=== PATIENT | female | born 1960 | race Caucasian/White ===

== ENCOUNTER → 2018-02-04 08:45 | Outpatient (CLI) | payer OTHER, SELFPAY ==
--- NOTE | 2018-02-04 | DI.MG.S_ITS ---
BILATERAL DIGITAL SCREENING MAMMOGRAM 3D/2D WITH CAD: 02/04/2018 CLINICAL: Routine screening. Family history of breast cancer. Comparison is made to exams dated: 01/31/2017 mammogram, 01/23/2016 mammogram, and 12/03/2014 mammogram - [facility]. The tissue of both breasts is heterogeneously dense. This may lower the sensitivity of mammography. Current study was also evaluated with a Computer Aided Detection (CAD) system. No significant masses, calcifications, or other findings are seen in either breast. There has been no significant interval change. IMPRESSION: NEGATIVE There is no mammographic evidence of malignancy. A 1 year screening mammogram is recommended. NOTE: For mammograms, a report in lay terms will be sent to the patient. Approximately 15% of breast malignancies will not be visualized mammographically. In the management of a palpable breast mass, a negative mammogram must not discourage biopsy of a clinically suspicious lesion. Electronically Signed By: Medina palma/shade:02/05/2018 12:36:24 letter sent: Normal Exam ACR BI-RADS Category 1: Negative [id number]
== END ==
PROVIDERS: PCP Family Medicine; Visit Provider Family Medicine
DX: Z12.31 Encounter for screening mammogram for malignant neoplasm of breast (principal); Z80.3 Family history of malignant neoplasm of breast
CPT/HCPCS: 77063; 77067

== ENCOUNTER → 2018-05-14 07:05 | Outpatient (CLI) | payer OTHER, SELFPAY ==
[2018-05-14 08:11] LABS: Add Manual Diff / Slide Review NO; Basophils Absolute Auto 100 /uL (0-100); Basophils Percent Auto 1.4 % (0-2); Eosinophils Absolute Auto 200 /uL (0-450); Eosinophils Percent Auto 2.8 % (2-4); Hematocrit 42.4 % (36-46); Hemoglobin 14.2 g/dL (12.0-16.0); Lymphocytes Absolute Auto 1600 /uL (1100-4500); Lymphocytes Percent Auto 26.4 % (25-40); Mean Corpuscular HGB Conc 33.4 % (30-36); Mean Corpuscular Hemoglobin 31.1 PG (26-34); Mean Corpuscular Volume 93.1 fL (80-100); Monocytes Absolute Auto 600 /uL (0-900); Monocytes Percent Auto 10.3 % (3-14); Neutrophils Absolute Auto 3600 /uL (1500-7000); Neutrophils Percent Auto 59.1 % (50-75); Platelet Count 360 X10^3/uL (150-400); Red Blood Cell Count 4.56 X10^6/uL (4.0-5.2); Red Cell Distribution Width 13.4 % (11.6-14.8); White Blood Cell Count 6.1 X10^3/uL (4.5-11.0)
[2018-05-14 08:18] LABS: Carbon Dioxide 29 mmol/L (22-32); Chloride 101 mmol/L (98-107); HEMOLYSIS < 15 (0-50); Potassium 4.1 mmol/L (3.4-5.1); Sodium 139 mmol/L (137-145)
== END ==
PROVIDERS: PCP Family Medicine; Visit Provider Orthopaedic Surgery
DX: M16.11 Unilateral primary osteoarthritis, right hip (principal); Z01.818 Encounter for other preprocedural examination; Z01.812 Encounter for preprocedural laboratory examination
CPT/HCPCS: 36415; 80051; 85025; 93005

== ENCOUNTER 2018-05-26 07:58 | Inpatient (IN) | payer OTHER, SELFPAY ==
[2018-05-23 08:54] VITALS: BMI 28.3
[2018-05-26] VITALS (18 sets, daily range): BP systolic 101–159; BP diastolic 60–104; PULSE 69–98; RESP 15–18; TEMP 35.9–37; O2SAT 94–100; BMI 28.2
--- NOTE | 2018-05-26 06:00 | DI.RAD.S_ITS ---
PROCEDURE: XR PELVIS 1-2V INDICATIONS: post op films TECHNIQUE: Single frontal view of the pelvis acquired. COMPARISON: None. FINDINGS: Bones: No fractures or dislocations. No suspicious bony lesions. Normal alignment after right total hip arthroplasty. Soft tissues: Visualized bowel gas pattern is normal. No suspicious soft tissue calcifications. IMPRESSION: Right total hip arthroplasty procedure, normal alignment. Dictated by: Von Hui M.D. on 05/26/2018 at 13:02 Approved by: Von Hui M.D. on 05/26/2018 at 13:02
[2018-05-26] MEDS: ACETAMINOPHEN 325 MG TABLET 975 MG PO (08:51)
[2018-05-26] MEDS: CELECOXIB 200 MG CAPSULE PO (08:51)
[2018-05-26] MEDS: LACTATED RINGERS 1,000 ML 42 ML IV ×2 (09:02→10:29)
--- NOTE | 2018-05-26 09:15 | PM.PREOP ---
Pre-operative Note Interval Note History & Physical reviewed/Exam performed by Physician: Yes Changes to H&P: No
[2018-05-26] MEDS: CEFAZOLIN 1 GM VIAL IV (09:39)
--- NOTE | 2018-05-26 10:13 | SUR.OPER ---
Lateral on padded OR bed. Gel axillary roll. Arms secured on padded armboard with pillow supporting top arm. Padded hip positioner braces x4 - anterior and posterior chest and pelvis. Additional gel pad used anterior pelvis. Gel pad under bottom leg from knee to foot and secured with tape over sheet.
[2018-05-26] MEDS: BUPIVACAINE 0.25% W/ EPI VIAL 50 ML INJ (10:17)
[2018-05-26] MEDS: TRANEXAMIC ACID 1,000 MG VIAL 1000 MG IV ×2 (10:18→10:50)
--- NOTE | 2018-05-26 11:17 | PM.OP.1 ---
Operative Date/Time/Diagnoses Date of procedure: 05/26/18 Time of procedure: 11:18 Pre-op diagnosis: Right hip degenerative joint disease Post-op diagnosis: same Procedure & Clinicians Procedure: Right total hip arthroplasty (CPT code 67106 with social services assistant) Same procedure as scheduled: Yes Indications: Patient is an 57-year-old female with severe right hip DJD. The patient has pain with activities and at rest, limited ambulation and activity tolerance, difficulties with ADLs, and failure of conservative treatment. We have discussed the nature of condition, treatment options, risks and benefits, and patient elects to proceed with total hip arthroplasty and gives informed consent. Surgeon: Palmer Lundberg Director Fixed Income: Jaison Alba Anesthesia Type: General and Spinal Operative Notes Closure Type: primary Specimen(s): none sent Prosthetic devices, grafts, tissues, transplants, or devices: Acetabulum: Gamboa and Nephew R3 acetabular component size 46 mm Femoral component: Gamboa and Nephew Anthology stem size 4 with standard offset Femoral head: 28 mm + 4 Oxinium Estimated Blood Loss (mL): 150 Blood products transfused: none Procedure in detail: After satisfaction induction of anesthetic, and administration of IV antibiotics, the patient was positioned in the lateral decubitus position with all bony prominences well padded and pelvic position secured using a hip mail clerk positioning device. Right hip and lower extremity prepped and draped in the usual sterile fashion, 1st dose of intravenous tranexamic acid was administered, then a longitudinal incision was created centered over the greater trochanter and carried sharply through the skin and subcutaneous tissues down to the fascia alex which was divided longitudinally and retracted with a Charnley retractor. External rotators visualize, cut, tagged, and retracted posteriorly, then the capsule was cut in a T-type fashion with the corners tagged and retracted. Hip was dislocated and femoral neck cut made according to preoperative templating. Acetabular retractors then placed, and the acetabular labrum and osteophytes were excised. The acetabulum was then sequentially reamed to 45 mm with an excellent circumferential ream and fit with the trial. The trial component was removed and a permanent size 46 mm Gamboa and Nephew R3 acetabular component was selected, positioned, and impacted with satisfactory position and fixation achieved. Permanent liner was then inserted with the elevated lip directed posteriorly. Soft tissue then removed off the lateral femoral neck in the lateral neck was entered using a box osteotome. T-handled reamers placed down the canal followed by sequential broaching to for with the final broach left in place for trial reduction which demonstrated excellent leg length, range of motion, and stability characteristics with a 28 mm + 4 trial ball. The trial and broach were removed, and a permanent size 4 standard offset Gamboa and Nephew Anthology stem was selected and inserted with excellent position and fixation achieved. Another trial reduction yielded the above characteristics so the trial ball was exchanged for a permanent +4 28 mm Oxinium ball. The hip was irrigated and reduced and excellent leg length range of motion and stability characteristics were achieved and maintained. Periarticular tissues were infiltrated with Marcaine. The hip was copiously irrigated, and the capsule repaired with #2 Ethibond, and the piriformis was repaired back to the greater trochanter with the same. Fascia alex closed with interrupted #1 Ethibond sutures, and the subcutaneous tissues were closed in 2 layers of 0 Vicryl and 2 0 Vicryl. Skin was closed with tha and sterile dressings applied. Second dose of tranexamic acid was administered intravenously, and the anesthetic was terminated. Complications: none Condition: stable Disposition: PACU Plan for aftercare: Patient will be admitted to the acute care serna, and anticipate discharge on postop day 1-2 with follow-up in office in 10-14 days. Outpatient physical therapy will be arranged and patient will continue to observe posterior hip precautions. Patient will continue use of postoperative Lovenox for 10 days postop.
--- NOTE | 2018-05-26 11:21 | P.OP_ITS ---
Operative Date/Time/Diagnoses Date of procedure: 05/26/18 Time of procedure: 11:18 Pre-op diagnosis: Right hip degenerative joint disease Post-op diagnosis: same Procedure & Clinicians Procedure: Right total hip arthroplasty (CPT code 78695 with activities assistant) Same procedure as scheduled: Yes Indications: Patient is an 57-year-old female with severe right hip DJD. The patient has pain with activities and at rest, limited ambulation and activity tolerance, difficulties with ADLs, and failure of conservative treatment. We have discussed the nature of condition, treatment options, risks and benefits, and patient elects to proceed with total hip arthroplasty and gives informed consent. Surgeon: Palmer Lundberg Director Of Email Marketing: Jaison Alba Anesthesia Type: General and Spinal Operative Notes Closure Type: primary Specimen(s): none sent Prosthetic devices, grafts, tissues, transplants, or devices: Acetabulum: Gamboa and Nephew R3 acetabular component size 46 mm Femoral component: Gamboa and Nephew Anthology stem size 4 with standard offset Femoral head: 28 mm + 4 Oxinium Estimated Blood Loss (mL): 150 Blood products transfused: none Procedure in detail: After satisfaction induction of anesthetic, and administration of IV antibiotics, the patient was positioned in the lateral decubitus position with all bony prominences well padded and pelvic position secured using a hip doll surgeon positioning device. Right hip and lower extremity prepped and draped in the usual sterile fashion, 1st dose of intravenous tranexamic acid was administered, then a longitudinal incision was created centered over the greater trochanter and carried sharply through the skin and subcutaneous tissues down to the fascia alex which was divided longitudinally and retracted with a Charnley retractor. External rotators visualize, cut, tagged, and retracted posteriorly, then the capsule was cut in a T-type fashion with the corners tagged and retracted. Hip was dislocated and femoral neck cut made according to preoperative templating. Acetabular retractors then placed, a nd the acetabular labrum and osteophytes were excised. The acetabulum was then sequentially reamed to 45 mm with an excellent circumferential ream and fit with the trial. The trial component was removed and a permanent size 46 mm Gamboa and Nephew R3 acetabular component was selected, positioned, and impacted with satisfactory position and fixation achieved. Permanent liner was then inserted with the elevated lip directed posteriorly. Soft tissue then removed off the lateral femoral neck in the lateral neck was entered using a box osteotome. T- handled reamers placed down the canal followed by sequential broaching to for with the final broach left in place for trial reduction which demonstrated excellent leg length, range of motion, and stability characteristics with a 28 mm + 4 trial ball. The trial and broach were removed, and a permanent size 4 standard offset Gamboa and Nephew Anthology stem was selected and inserted with excellent position and fixation achieved. Another trial reduction yielded the above characteristics so the trial ball was exchanged for a permanent +4 28 mm Oxinium ball. The hip was irrigated and reduced and excellent leg length range of motion and stability characteristics were achieved and maintained. Periarticular tissues were infiltrated with Marcaine. The hip was copiously irrigated, and the capsule repaired with #2 Ethibond, and the piriformis was repaired back to the greater trochanter with the same. Fascia alex closed with interrupted #1 Ethibond sutures, and the subcutaneous tissues were closed in 2 layers of 0 Vicryl and 2 0 Vicryl. Skin was closed with tha and sterile dressings applied. Second dose of tranexamic acid was administered intravenously, and the anesthetic was terminated. Complications: none Condition: stable Disposition: PACU Plan for aftercare: Patient will be admitted to the acute care serna, and anticipate discharge on postop day 1-2 with follow-up in office in 10-14 days. Outpatient physical therapy will be arranged and patient will continue to observe posterior hip precautions. Patient will continue use of postoperative Lovenox for 10 days postop.
[2018-05-26] MEDS: ONDANSETRON 4 MG/2 ML INJ IV (11:38)
[2018-05-26] MEDS: LACTATED RINGERS 1,000 ML 125 ML IV ×3 (12:21→20:32)
[2018-05-26] MEDS: HYDROCODONE/ACET 5/325 TABLET 1 TAB PO ×3 (13:49→23:22)
--- NOTE | 2018-05-26 14:08 | PC.NURSE ---
Day Shift Pt arrived to floor via bed from PACU, Ana ADLER assisted with admission, Pt is A&O able to make needs known. Right hip dressing is CDI, continues to have numbness to bilateral LE from upper thigh down, unable to wiggle toes, feet are warm to touch and +PP with brisk cap refill. Lung sounds are clear 99% RA, Denies any nausea. Oriented to room and call light. IV fluids infusing per order. Call light within reach and bed alarm on.
[2018-05-26] MEDS: hydrOXYzine pamoate 25 MG CAPSULE PO (16:32)
--- NOTE | 2018-05-26 17:14 | PC.NURSE ---
Addendum entered by iZta Lake R.N. 05/26/18 21:51: Pt stable post op course. SBA to BR w/walker w/o incidence. IVF continues as per orders. Dsg to surgical hip CDI. Med @ 1800 for discomfort w/fair relief. Call light w/in reach, bed alarm on for pt safety. Continue w/plan of care. Original Note: Pt awake visiting w/ family. Able to move lower extremities at this time. IVF infusing via pump as per orders. Dsg to surgical hip CDI. Med at 1630 w/vistaril for muscle spams w/good relief. Call lgith w/in reach.
[2018-05-26] MEDS: CEFAZOLIN 2 GM/100 ML FROZ.PIGGY IV (17:59)
--- NOTE | 2018-05-26 18:28 | PT.IPTN ---
Current Diagnoses Unilateral primary osteoarthritis, right hip (05/26/18) Surgery Performed Operation Date: 05/26/18 10:00 Actual Procedures p Total Hip Arthroplasty(Right) - Palmer Lundberg MD Physical Therapy Treatment Note M3 PT-IP Subjective Start: 05/26/18 15:11 Freq: NEEDED Status: Active Protocol: Document 05/26/18 17:20 HH (Rec: 05/26/18 18:28 HH [id number]) Subjective Physical Therapy Visit Type Type Administrative Note Visit Start Time 17:20 Visit Stop Time 17:30 Total Visit Minutes 10 Notes Assisted nursing staff and pt to use bathroom. Did not perform full PT evaluation. Pt was able to supine to sit to R side SBA, transfer with SBA and amb from EOB to bathroom SBA. Cues needed to use stagger stance for sit<>stand activities. Pt was able to recall postop precautions.
[2018-05-27] MEDS: CEFAZOLIN 2 GM/100 ML FROZ.PIGGY IV (01:52)
[2018-05-27 03:35] VITALS: BP 131/82; PULSE 87; RESP 20; TEMP 37.1; O2SAT 97
[2018-05-27] MEDS: HYDROCODONE/ACET 5/325 TABLET 1 TAB PO ×2 (03:36→07:53)
[2018-05-27 05:56] LABS: Estimated Glomerular Filt Rate > 60.0 mL/min (>60)
[2018-05-27 05:58] LABS: Hematocrit 36.2 % (36-46); Hemoglobin 12.3 g/dL (12.0-16.0)
[2018-05-27 06:13] LABS: Platelet Count 275 X10^3/uL (150-400)
--- NOTE | 2018-05-27 07:21 | PM.DS.1 ---
History of Present Illness Date Patient Seen: 05/27/18 Chief complaint: 02250 Right Total Hip Arthroplasty Narrative: Patient seen by Dr. Lundberg bedside status post right total hip arthroplasty postop day 1. Patient is doing well, she denies any nausea vomiting and pain is well controlled. She would like to go home today. Discharge Providers Date of admission: 05/26/18 07:58 Discharge Date: 05/27/18 Primary care physician: Noah Pepe MD Consults: 05/26/18 12:07 Consult to Discharge Planning Routine Comment: Consult to Physical Therapy Evaluate & Treat Comment: Physician Instructions: post op CUCA protocol Consult to Respiratory Therapy Evaluate & Treat Comment: Physician Instructions: Evaluate and treat Discharge provider: Angeles Holt PA-C Summary Discharge Diagnosis: right hip osteoarthritis Hospital Course: Patient was admitted to the hospital s/p R. total hip arthroplasty by Dr. Lundberg on 05/26/18. Patient tolerated the procedure well with no major complications. They were transferred to the acute care floor where they were placed on the standard joint replacement pathway and protocol. They were seen by physical therapy who recommended that they be discharged home. They were stable and ready for discharge on 05/27/18. Status at Discharge Cognitive/behavioral status at discharge: Alert oriented x3 Overall status at discharge: patient is progressing back to baseline Time Spent with Patient Less than 30 minutes Exam Vital Signs (past 8 hours): - 05/26/18 23:30 05/27/18 03:35 Temperature 98.6 F 98.8 F Pulse Rate 86 87 Respiratory Rate 18 20 Blood Pressure 133/76 131/82 Pulse Oximetry 97 97 Oxygen Delivery Method Room Air Narrative Exam Narrative: Patient examined by Dr. Lunbderg. Dressing on operative hip clean, dry, and intact with no signs of drainage. Neurovascularly intact bilateral lower extremities with soft compressible calaves. Alert and oriented. Objective Labs Result Diagrams: 05/27/18 05:02 05/27/18 05:02 Labs: Laboratory Results - last 24 hr 05/27/18 05/27/18 05/27/18 05:02 05:02 05:02 Hgb 12.3 Hct 36.2 Plt Count 275 Creatinine 0.50 L Estimated GFR > 60.0 Discharge Plan Discharge Plan Patient Disposition: Home Discharge comment: d/c after PT Discharge Med Rec/Prescriptions Prescriptions: New hydrocodone-acetaminophen 5-325 mg Tablet 1 tab PO Q4HR PRN (Reason: Pain, Moderate (4-6)) Qty: 0 RF: 0 hydroxyzine pamoate 25 mg Capsule 25 mg PO Q6HR PRN (Reason: Spasms) Qty: 0 RF: 0 enoxaparin [Lovenox] 40 mg/0.4 mL Syringe 40 mg subcut DAILY 8 Days Qty: 3.2 RF: 0 Continued ibuprofen [Advil] 100 MG tablet 600 mg PO TID-QID Qty: 0 RF: 0 lisinopril 10 MG tablet 20 mg PO QDAY Qty: 0 RF: 0 vitamin B complex [B Complex-Vitamin B12] 1 EACH tablet 2 tab PO QDAY Qty: 0 RF: 0 cholecalciferol (vitamin D3) [Vitamin D3] 400 UNIT capsule 8,000 unit PO DAILY Qty: 0 RF: 0 acetaminophen [Tylenol Extra Strength] 500 mg Tablet 1,000 mg PO Q6H PRN (Reason: Pain (Scale Score 1-3)) RF: 0 Follow up/Referrals: Palmer Lundberg MD [Physician] - (Follow up at the office in 5-7 days at your previously scheduled appointment.) Provider Discharge Instructions Diet: Diet as Tolerated Activity: weight-bearing as tolerated, follow hip precautions, use walker until cleared by PT Cold/Heat Therapy: Apply ice to affected area for 20 minutes at a time at least hourly while awake. Skin/Wound/Dressing Care Report to your healthcare provider any signs of infection, such as:: chills, fever, night sweats, increased pain, unusual drainage and unusual redness Dressing: Keep dressing clean, dry, and intact. Visit Report/Discharge Packet Instructions: DI for Hip Replacement Stand Alone Forms: Surgery Discharge Discharge Data Primary Care Provider: Noah Pepe Attending Provider: Palmer Lundberg Admit Date/Time: 05/26/18 07:58 Discharges patient from system. Discharge Date/Time: 05/27/18 10:20 Quality VTE Deep Vein Thrombosis/Pulmonary Embolism Present on Admission: No
[2018-05-27] MEDS: ENOXAPARIN 40 MG/0.4 ML SYRINGE SUBCUT (07:56)
[2018-05-27 08:00] VITALS: BP 118/83; PULSE 99; RESP 16; TEMP 36.7; O2SAT 98
--- NOTE | 2018-05-27 11:13 | CM.DANOTE ---
DCP/Assessment: Reviewed chart. Patient is a 57yr old female admitted to [facility] for right CUCA performed on 05-26-[address] Lundberg. PCP is Dr. Peep. Primary payor is 1[employer]. Met with patient explained CM/SW role. Patient reports that she plans to discharge home today. Patient reports that she has supportive spouse and plans to do outpatient therapy. Patient has FWW for home use and spouse intends to borrow shower bench/chair for short term use. Patient I prior to admit. No additional d/c planning needs identified. P: Home today. WERNER Mcadams Discharge Planning/Care Management CM Discharge Assessment Start: 05/27/18 11:09 Freq: Status: Discharge Protocol: Document 05/27/18 11:10 KJS (Rec: 05/27/18 11:13 KJS [id number]) Discharge Planning Assessment Assigned Solvent Process Extractor Operator WERNER Mcadams Contact Information Horace (spouse) no number listed . Advance Directives? No: Pt will download information on own Advance Directives on File No History Provided By Patient Medical Record Has Patient been admitted in last 30 No days? Prior Living Arrangements House Household Members spouse children Type of transporation used prior to Drives own vehicle admit Independent with ADL's Yes Is patient alert and oriented? Yes Caregiver for Another No DME Already Rented / Owned FWW / Walker Comment Patient's spouse going to borrow shower bench/chair for home use. Patient/Family Preference OP PT Therapy Barriers to Discharge No Discharge Plan Home Transportation Arrangement Family to provide transport Referrals Initiated None needed Whiteboard Updated in Patient Room with Yes name and ext. # of Solvent Process Extractor Operator Review Status In Process Please Provide Date Initial DC 05/27/18 Assessment Was Performed Next Review Type Continued Stay Review Pre-Anesthesia Assessment Start: 05/23/18 08:54 Freq: Status: Complete Protocol: Document 05/23/18 08:54 CAB (Rec: 05/23/18 09:27 CAB [id number]) Pre-Anesthesia Assessment Patient Information Reviewed Via Phone Assessment Assessment Completed With Patient Diagnostic Results CBC EKG Electrolytes Primary Care Provider Noah Pepe Seen Specialist in Last 12 Months Yes Specialist Seen Orthopedist Primary Language Macedonian Enamel Cracker Required No Height 148.59 cm Weight 62.596 kg Body Mass Index (BMI) 28.3 Hearing Ability Normal Visual Assist Contacts Glasses Dentition Type Teeth, Natural Present Barriers to Learning None Other Aids No Hx Anesthesia Reactions No Hx Family Anesthesia Reaction No Hx Malignant Hyperthermia No Hx Blood Transfusions No Anesthesia Review Requested Yes: PAC Courtesy re: abnormal pre-op ECG Draughtsman No alcohol intake current alcohol intake frequency 0-2 drinks per day Smoking Status Former smoker Tobacco type cigarettes how long ago did patient quit smoking Quit 1985 Substance Use Type does not use Pain Present Pain Reported Musculoskeletal Symptoms Abnormal Gait Difficulty Walking Joint Pain Muscle Weakness History of Falling (Recent or History of No ) Patient is completely paralyzed or No completely immobile Mental Status Oriented to own ability Is patient on oxygen? No Does patient have NAIR/SOB No Hx Sleep Apnea No Currently Taking a Beta Karel No Can You Climb a Flight of Stairs Without Yes SOB Hx Chest Pain No Hx SOB No Hx Syncope or Dizziness No Anti-Coagulant Therapy No Has a Restaurant Hospitality Manager No Cardiac Testing No Hx Pacemaker/ICD No Pacemaker Rep Required? No Cardiac Clearance Received Not Applicable Diet Type At Home Regular Ketogenic dysphagia No Bladder Pattern Urgency Urinary Catheter Present No Hx Urinary Self Catheterization No Diabetes No Patient No Lactating No Hx Drug Resistant Organism No Presence of External or Internal Medical No Devices Have you traveled outside the [facility] States in the last 30 days? Marital Status Lives With spouse children Prior Living Arrangements House Number of Floors (Floors) Two Floors Number of Stairs To Enter/Railing? None Support System Child/Children Spouse Does the Patient Have Assistance After Yes Surgery Patient Discharge Plan Description Return Home Comment Pt advised 26 hour length of stay per surgeon's office Feels Safe in Current Environment Yes Been Physically Hurt or Threatened By a No Person in Current Environment Do you have thoughts of harming yourself None or others? Are you currently considering suicide? No Do you have a plan to hurt yourself or No Plan others? Do You Have Any Spiritual Beliefs That No May Affect Your HC Choices? Do You Have Any Cultural Practices That No May Affect Your HC Choices? Spiritual Referral None Comment Sikhism Who Can We Speak to About Patient's Care Family, friends Identifying Code for Release of Patient Declines to issue Information Health Care Proxy/Next of Kin Horace () Health Care Proxy Emergency Contact Name Horace (), Sherri ( daughter) Emergency Contact Phone Number Horace () [phone] or Sherri (daughter) [phone] Advance Directives? No: Pt will download information on own Advance Directives on File No Requested Patient Bring Advanced Yes Directives DOS Power of Dogman/Woman No PAC Instructions Do not shave/clip surgical site Durable medical equipment Medications to take/avoid Nasal antibiotic No ETOH/petroleum product on skin DOS NPO Post-op transportation Pre-surgical wash Sturdy shoes/comfortable clothes Do not bring valuables and remove jewelry
--- NOTE | 2018-05-27 11:18 | PT.IIE ---
Current Diagnoses Unilateral primary osteoarthritis, right hip (05/26/18) Surgery Performed Operation Date: 05/26/18 10:00 Actual Procedures p Total Hip Arthroplasty(Right) - Palmer Lundberg MD Surgical History (Last Updated 05/23/18 @ 09:15 by Marlin Mireles RN) Hx of tubal ligation (Acute) Medical History (Last Updated 05/23/18 @ 09:15 by Marlin Mireles RN) Diverticulosis (Acute) Former smoker (Acute) HTN (hypertension) (Acute) Kidney stones (Acute) Migraines (Acute) Osteoarthritis (Acute) Physical Therapy Inpatient Evaluation/Re-Eval M1 PT/OT-IP Prior Functional Status Start: 05/26/18 15:11 Freq: NEEDED Status: Discharge Protocol: Document 05/27/18 09:28 RS (Rec: 05/27/18 11:18 RS [id number]) Medical Review Prior Functional Status Medical History Reviewed Yes Diet/Fluid Consistency Regular Communication no known deficits Mobility and Gait ind Activities of Daily Living and IADL's ind Prior Functional Level (Other details) no falls Social History Household Members spouse children Living Arrangements House Number of Floors (Floors) One Floor Number of Stairs To Enter/Railing? 2STE w/ R ascending rail Home Environment Standard Height Toilet Home Equipment Front Wheel Walker Straight Cane Raised Toilet Seat w/Armrests M2 PT-IP Current Condition Start: 05/26/18 15:11 Freq: NEEDED Status: Discharge Protocol: Document 05/27/18 09:28 RS (Rec: 05/27/18 11:18 RS [id number]) Physical Therapy Current Condition Current Condition Evaluation Date 05/27/18 Treatment Diagnosis R posterior CUCA Onset Date 05/26/18 Precautions Posterior Hip Precautions No Hip Flexion > 90 degrees No Hip Internal Rotation No Hip Adduction Weight Bearing Status Weight Bearing Status Weight Bear as Tolerated M3 PT-IP Subjective Start: 05/26/18 15:11 Freq: NEEDED Status: Discharge Protocol: Document 05/27/18 09:28 RS (Rec: 05/27/18 11:18 RS [id number]) Subjective Physical Therapy Visit Type Type Initial Evaluation Visit Start Time 08:30 Visit Stop Time 09:28 Total Visit Minutes 58 Physical Therapy Visit Comments Patient Comments Pt reports doing well, is looking forward to going home today. Therapy Pain Assessment Pain When Pain Assessed At Rest Pain Present Pain Present Denied Pain M4 PT-IP Mobility and Gait Start: 05/26/18 15:11 Freq: NEEDED Status: Discharge Protocol: Document 05/27/18 09:28 RS (Rec: 05/27/18 11:18 RS [id number]) PT-Transfer Assessment Sit to and From Stand Sit to and from Stand Standby Assistance Equipment Transfer Assistive Device Front Wheeled Walker Transfers Transfer Destination Chair Transfer Technique walked Transfer Ability Level of Assist Standby Assistance Comments Mobility Comments Pt is SBA for all transfers using a FWW, able to utilize staggered stance for sit<> stands without prompting, doesn't break hip precautions. Gait Assessment Gait Gait Assistance Required: Standby Assistance Distance (Feet) 100 Assistive Devices Assistive Device Front Wheeled Walker Gait Deviations General Gait Pattern Antalgic Comments Gait Comments Pt is slightly antalgic but able to tolerate a relatively symmetrical gait pattern, steady, no LOB. Stair Climbing Assessment Evaluation Level of Assist On Stairs Contact Guard Assistance Devices Stair Climbing Assistive Devices Right Railing Technique/Endurance Stair Climbing Direction Ascend and Descend Stair Climbing Technique Step to Step Number of Steps Climbed 3 Query Text: Stair Climbing Set # Repetitions (reps) 1 PT-Balance Assessment Sitting Balance and Reactions Static Sitting Balance Ability Normal Dynamic Sitting Balance Ability Good Standing Balance and Reactions Static Standing Balance Ability Good Dynamic Standing Balance Ability Good Device Used FWW M5 PT-IP Objective Assessments Start: 05/26/18 15:11 Freq: NEEDED Status: Discharge Protocol: Document 05/27/18 09:28 RS (Rec: 05/27/18 11:18 RS [id number]) Orientation Orientation/Cognition Level of Alertness Alert Orientation Name Age Birthday Month Date Year Day of Week Place Situation Language Function Ability No Deficits Noted Safety Awareness Understands Safety Issues Memory Description No Deficits Noted Gross Range of Motion Upper Extremity ROM Assessment Within Functional Limits Lower Extremity ROM Assessment Within Functional Limits Impairments within precautions Strength Upper Extremity Strength Assessment Within Functional Limits Lower Extremity Strength Assessment Right Impaired M6 PT-IP Treatment Start: 05/26/18 15:11 Freq: NEEDED Status: Discharge Protocol: Document 05/27/18 09:28 RS (Rec: 05/27/18 11:18 RS [id number]) Physical Therapy Treatment Exercises Exercises Ankle Pumps Gluteal Sets Quad Sets Heel Slides Supine Hip Abduction Education Education Provided Precautions Weight Bearing Status Post-Op Packet Safety M7 PT-IP Assessment and Plan Start: 05/26/18 15:11 Freq: NEEDED Status: Discharge Protocol: Document 05/27/18 09:28 RS (Rec: 05/27/18 11:18 RS [id number]) PT Summary Assessment and Plan Potential Rehabilitation Potential Excellent Status of Condition at Evaluation Stable Summary Impairments Pain ROM Strength Balance Progress Towards Goals Safe For Discharge Goals Met Assessment Summary Pt is POD#1 R posterior CUCA. Pt does present with pain and weakness resulting in the need for SBA with FWW for OOB mobility, but this is expected after such a surgery. Pt is doing quite well overall and is safe to discharge directly home once medically ready. Pt' s spouse will provide 15/10 assist, and pt will be starting OPPT on 06/02. Pt has no other acute PT goals/ needs, therefore, acute PT will sign off. Goals Bed Mobility Goal Standby Assistance Transfer Goal Standby Assistance Front Wheeled Walker Gait Goal Standby Assistance Front Wheel Walker Frequency of Treatment Frequency Of Treatment Discharge Recommendations To Nursing Amount of Assist Needed Standby Assistance Discharge Recommendations PT Discharge Recommendations Home with Assistance Outpatient PT
== END 2018-05-27 10:20 | disposition home or self-care (01) | DRG 470 ==
PROVIDERS: Admitting Provider Orthopaedic Surgery; PCP Family Medicine; Visit Provider Orthopaedic Surgery
PROC: 0SR90JZ Replacement of Right Hip Joint with Synthetic Substitute, Open Approach (ICD-10-PCS; CPT 27130; principal; 2018-05-26 10:00)
DX: M16.11 Unilateral primary osteoarthritis, right hip (principal); I10 Essential (primary) hypertension; Z87.891 Personal history of nicotine dependence
CPT/HCPCS: 36415; 72170; 82565; 85014; 85018; 85049; 97110; 97116; 97161; 97530; C1776; J0690; J1650; J2250; J2405; J2704; J3010

== ENCOUNTER → 2018-12-05 07:10 | Outpatient (CLI) | payer OTHER, SELFPAY ==
[2018-05-26 12:13] VITALS: BMI 28.2
[2018-12-05 07:44] LABS: Add Manual Diff / Slide Review NO; Basophils Absolute Auto 100 /uL (0-100); Basophils Percent Auto 1.2 % (0-2); Eosinophils Absolute Auto 100 /uL (0-450); Hematocrit 40.9 % (36-46); Hemoglobin 13.9 g/dL (12.0-16.0); Lymphocytes Absolute Auto 1800 /uL (1100-4500); Lymphocytes Percent Auto 35.5 % (25-40); Mean Corpuscular Volume 96.9 fL (80-100); Monocytes Absolute Auto 600 /uL (0-900); Monocytes Percent Auto 11.5 % (3-14); Neutrophils Absolute Auto 2600 /uL (1500-7000); Neutrophils Percent Auto 49.8 % (50-75); Platelet Count 302 X10^3/uL (150-400); Red Blood Cell Count 4.23 X10^6/uL (4.0-5.2); Red Cell Distribution Width 13.8 % (11.6-14.8); White Blood Cell Count 5.1 X10^3/uL (4.5-11.0)
[2018-12-05 08:02] LABS: Carbon Dioxide 29 mmol/L (22-32); Chloride 101 mmol/L (98-107); HEMOLYSIS 16 (0-50); Potassium 4.1 mmol/L (3.4-5.1); Sodium 139 mmol/L (137-145)
== END ==
PROVIDERS: Visit Provider Orthopaedic Surgery
DX: M17.11 Unilateral primary osteoarthritis, right knee (principal); Z01.818 Encounter for other preprocedural examination; Z01.812 Encounter for preprocedural laboratory examination
CPT/HCPCS: 36415; 80051; 85025; 93005; 93010

== ENCOUNTER 2018-12-24 06:55 | Day surgery (SDC) | payer BC, SELFPAY ==
[2018-05-26 12:13] VITALS: BMI 28.2
[2018-12-12 09:55] VITALS: BMI 28.3
[2018-12-24] VITALS (14 sets, daily range): BP systolic 98–148; BP diastolic 6–93; PULSE 77–90; RESP 14–25; TEMP 36.1–37.3; O2SAT 95–98; BMI 28.8
--- NOTE | 2018-12-24 06:00 | DI.RAD.S_ITS ---
PROCEDURE: XR KNEE RT 1TO2V INDICATIONS: post-op RT KNEE TECHNIQUE: 2 view(s) of the knee acquired. COMPARISON: [facility] [place], ALISHA, XR KNEE ARTHRITIC SERIES RT, 04/01/2018, 7:35. FINDINGS: Bones: Patient is status post knee joint arthroplasty. Hardware components are in expected positions. Visualized bony structures are intact. Soft tissues: Overlying postoperative changes are noted. IMPRESSION: Total knee arthroplasty with prosthesis in anatomic alignment. Dictated by: Kingsley Flanagan M.D. on 12/24/2018 at 14:22 Approved by: Kingsley Flanagan M.D. on 12/24/2018 at 14:23
[2018-12-24] MEDS: LACTATED RINGERS 1,000 ML 42 ML IV (08:18)
[2018-12-24] MEDS: ACETAMINOPHEN 325 MG TABLET 975 MG PO (08:18)
[2018-12-24] MEDS: CELECOXIB 200 MG CAPSULE PO (08:18)
[2018-12-24] MEDS: PREGABALIN 75 MG CAPSULE PO (08:18)
--- NOTE | 2018-12-24 08:39 | P.OP_ITS ---
Operative Date/Time/Diagnoses Date of procedure: 12/24/18 Time of procedure: 10:09 Pre-op diagnosis: Knee osteoarthritis Post-op diagnosis: same Procedure & Clinicians Procedure: Right total knee arthroplasty Same procedure as scheduled: Yes Indications: The patient presents today for total knee arthroplasty after failure of conservative treatment. The nature of the procedure including the risks and benefits, alternatives, postoperative course and expected outcome were discussed and all questions answered. Consent was obtained. Operative site confirmed and marked. Surgeon: Jose Luis Kaye Freezer Machine Operator: Jaison Alba Anesthesia Type: General, Spinal and Local Operative Notes Findings: Severe osteoarthritis with varus alignment. Closure Type: primary Specimen(s): none sent Prosthetic devices, grafts, tissues, transplants, or devices: [employer]hew Hamida BCS: 4 femoral component, 2 tibial component, 9 mm BCS polyethylene tray and 29 x 7.5 mm round patella Applied: implant(s) Estimated Blood Loss (mL): 20 Blood products transfused: none Tourniquet time (min): 48 Procedure in detail: The patient was taken to the operative suite and placed under general and spinal anesthesia. The patient was given prophylactic antibiotics prior to surgery. The patient was also given tranexamic acid, 1 g, just prior to surgery for postoperative hemostasis. The lateral knee was prepped and the joint injected with 20 mL of 1% Lidocaine with epinephrine. The knee was then prepped and draped in usual sterile fashion. The leg was exsanguinated with an Esmarch dressing and the tourniquet raised to 250 torr. A 15 cm anterior incision was made. Next a medial trivector arthrotomy was made. The extensor mechanism was marked to ensure accurate repair. Initial exposing dissection was carried out medially and laterally. The knee was then extended and the patellar thickness was measured and a cut made removing approximately 7- 8 mm of bone. The patella was then sized and drilled. Some excess lateral bone was excised and the patellofemoral ligament released. The knee was then flexed and the intramedullary femoral guide portia placed. The distal femoral cut was made in 6 ? of valgus at the + 0 position. The femoral size was measured and the appropriate cutting block was then placed and the anterior, posterior and chamfer cuts made. The intramedullary tibial alignment portia was then placed. The guide was set to remove approximately 9 mm from the less affected lateral side. The proximal tibial cut was then made with an oscillating saw. All meniscus and bony debris was then removed. Posterior femoral osteophytes removed with a curved osteotome. Flexion extension gaps were checked. No specific balancing was required other than routine exposure and removal of osteophytes. The soft tissues were then injected with a combination of 20 mL of half percent Marcaine with epinephrine and 20 mL of Exparel. The trial components were then placed. The knee went into full extension and flexion beyond 120?. There was excellent medial-lateral balance throughout motion. Patellar tracking was excellent. The trial components were removed and the knee was cleansed with Pulsavac irrigation and dried. The final components were cemented with high viscosity vacuum mixed bone cement with antibiotics. The joint was filled with a dilute Betadine solution. The knee was held in extension and the patellar clamped until the cement was fully cured. The knee was then irrigated. The extensor mechanism was closed with 5 interrupted #1 Vicryl sutures and a running Quill suture at 90 degrees of flexion. The joint was then injected with a combination of 1 g of tranexamic acid and 20 mL of quarter percent Marcaine with epinephrine. The subcutaneous tissue was closed with 2 0 Vicryl. The skin was closed with tha and surgical adhesive. An Aquacel dressing and Everardo wrap were then applied. The patient tolerated the procedure well and was returned to recovery room in good condition. Complications: none Post-operative Condition: stable Disposition: PACU Plan for aftercare: [facility] protocol for total knee arthroplasty.
--- NOTE | 2018-12-24 08:39 | PM.PREOP ---
Pre-operative Note Interval Note History & Physical reviewed/Exam performed by Physician: Yes Changes to H&P: No
[2018-12-24] MEDS: LIDOCAINE 1% W/EPI 20 ML INJ (08:50)
[2018-12-24] MEDS: CEFAZOLIN 2 GM/100 ML FROZ.PIGGY IV (09:00)
[2018-12-24] MEDS: BUPIVACAINE 0.25% W/ EPI (PF) 40 ML, BUPIVACAINE LIPOSOME 266 MG, SODIUM CHLORIDE 0.9% ... INJ (09:23)
[2018-12-24] MEDS: BUPIVACAINE 0.25% W/ EPI (PF) 20 ML, TRANEXAMIC ACID 1,000 MG, SODIUM CHLORIDE 0.9% 10 ML INJ (09:24)
[2018-12-24] MEDS: SODIUM CHLORIDE IRRIG SOLUTION 250 ML, POVIDONE-IODINE SPONGE STICKS 1 APPLIC IRR (09:25)
[2018-12-24] MEDS: HYDROCODONE/ACET 5/325 TABLET 1 TAB PO (11:15)
--- NOTE | 2018-12-24 11:15 | SUR.PHASEI ---
Report given to floor nurse. PO pain medication given for c/o 05/04 pain. BRANDON's x 4.
[2018-12-24] MEDS: IBUPROFEN 400 MG TABLET PO (12:58)
--- NOTE | 2018-12-24 14:05 | CM.IDA ---
Initial DCP Assessment Note: Pt is a 58 yo resident of [place]. Pt is in the OR today for Rt knee surgery w/ Dr Kaye. PCP: Dr Martin Payer: JUSTYNA Jha Reviewed chart. Pt off floor for her surgery today. This [facility] expects pt will return home POD#1 as she has planned for return home w/family support and outpt therapy, pt hopeful she could leave day of surgery. Following closely in case DC needs or questions arise once pt is assessed by therapy team. WERNER Krueger Discharge Planning/Care Management CM Discharge Assessment Start: 12/24/18 14:02 Freq: Status: Active Protocol: Document 12/24/18 14:02 CINDY (Rec: 12/24/18 14:04 CINDY [id number]) Discharge Planning Assessment Assigned Attending Ambulatory Care WERNER House DPOA/Assigned Designee Name Horace (), Sherri ( daughter) Contact Information Horace () [phone] or Sherri (daughter) [phone] Advance Directives? No Advance Directives on File No History Provided By Patient,Medical Record Prior Living Arrangements House Household Members spouse,children Type of transporation used prior to Drives own vehicle admit Independent with ADL's Yes Is patient alert and oriented? Yes Comment Patient's spouse going to borrow shower bench/chair for home use. Patient/Family Preference OP PT Therapy Discharge Plan Home Transportation Arrangement Family to provide transport Referrals Initiated None needed Review Status In Process
--- NOTE | 2018-12-24 14:09 | PC.NURSE ---
Pt arrived to floor around 1130. She was given 1 vicodin prior to arrival down in pacu. Helpful and pts level at a 2/10. Stayed a 2 for another hour so 400mg of po ibuprofen given. Pt is not on any IVF she is drinking a lot of fluids. Tolerated some lunch without any nausea or emesis. Dressing is aquacel with acewrap. Pt is napping at this time and comfortable. Daughters are both in room visiting.
--- NOTE | 2018-12-24 14:55 | PT.IIE ---
Current Diagnoses Unilateral primary osteoarthritis, right knee (12/24/18) Surgery Performed Operation Date: 12/24/18 08:45 Actual Procedures p Total Knee Arthroplasty(Right) - Jose Luis Kaye MD Surgical History (Last Updated 12/12/18 @ 10:00 by Marlin Mireles RN) History of total left hip arthroplasty (Acute 05/26/18) Hx of tubal ligation (Acute) Medical History (Last Updated 05/23/18 @ 09:15 by Marlin iMreles RN) Diverticulosis (Acute) Former smoker (Acute) HTN (hypertension) (Acute) Kidney stones (Acute) Migraines (Acute) Osteoarthritis (Acute) Physical Therapy Inpatient Evaluation/Re-Eval M1 PT/OT-IP Prior Functional Status Start: 12/24/18 17:36 Freq: NEEDED Status: Active Protocol: Document 12/24/18 14:55 AB (Rec: 12/24/18 17:59 AB [id number]) Medical Review Prior Functional Status Medical History Reviewed Yes Communication able to make needs known Mobility and Gait pt stated that she is independent with all mobilities and ambulation without AD Social History Household Members spouse,children Living Arrangements House Number of Floors (Floors) Two Floors Number of Stairs To Enter/Railing? has 3 steps to enter with bilateral wide rails and can only use one rail at a time ( daughter stated that pt will use R rail) Home Environment Standard Height Toilet,Walk in Shower Home Equipment Front Wheel Walker,Straight Cane,Raised Toilet Seat Without Armrests,Shower Seat with Backrest,Hand Held Shower Employment Status Retired Additional Social History Comment pt will have spouse to assist her and daughter will also come in to assist pt. M2 PT-IP Current Condition Start: 12/24/18 17:36 Freq: NEEDED Status: Active Protocol: Document 12/24/18 14:55 AB (Rec: 12/24/18 17:59 AB [id number]) Physical Therapy Current Condition Current Condition Evaluation Date 12/24/18 Treatment Diagnosis s/p R TKA; difficulty in walking Onset Date 12/24/18 Weight Bearing Status Weight Bearing Status Weight Bear as Tolerated M3 PT-IP Subjective Start: 12/24/18 17:36 Freq: NEEDED Status: Active Protocol: Document 12/24/18 14:55 AB (Rec: 12/24/18 17:59 AB [id number]) Subjective Physical Therapy Visit Type Type Initial Evaluation Visit Start Time 14:55 Visit Stop Time 15:39 Total Visit Minutes 44 Number of RECOOPERER Visits 0 Physical Therapy Visit Comments Patient Comments pt agreeable to do PT Patient Goals to go home Therapy Pain Assessment Pain Present Pain Present Denied Pain M4 PT-IP Mobility and Gait Start: 12/24/18 17:36 Freq: NEEDED Status: Active Protocol: Document 12/24/18 14:55 AB (Rec: 12/24/18 17:59 AB [id number]) PT-Bed Mobility Assessment Supine to Sit Supine to Sit Standby Assistance Sit to Supine Sit to Supine Standby Assistance Scooting Scooting to Edge of Bed Standby Assistance PT-Transfer Assessment Sit to and From Stand Sit to and from Stand Contact Guard Assistance,1 Person Assistance,Use of Upper Extremities Equipment Transfer Assistive Device Gait Belt,Front Wheeled Walker Orthotic/Prosthetic Devices or Brace: No Transfers Transfer Destination Toilet Transfer Technique pt ambulated using FWW Transfer Ability Level of Assist Contact Guard Assistance Comments Mobility Comments pt requested to use the toilet . pt completed bed mobility supine to sit SBA. pt was able to sit on EOB SBA and completed sit to stand CGA. pt ambulated to the toilet using FWW CGA ~ 10 ft. pt was able to complete sit <>stand using grab bar from the toilet CGA. pt was able to position brief and completed sit to stand CGA using garb bars. was able to pull up brief but wiht (+) LOB requiring min A. pt tends to do things quickly and requires cues for safely. educated pt on how to balance and manage brief safely. pt understood and agreed. pt agreed to ambulate farther and do stairs. pt requested to sit up on chair after ambulation. set pt up on chair. ice pack provided. call light and table placed within reach. Gait Assessment Gait Gait Assistance Required: Standby Assistance,Contact Guard Assist Distance (Feet) 125 Able to Maintain Weight Bearing Status Yes During Gait Assistive Devices Assistive Device Gait Belt,Front Wheeled Walker Orthotic/Prosthetic Devices or Brace: No Gait Deviations General Gait Pattern Antalgic,Decreased Stride Length,Decreased Feet Clearance Factors Limiting Gait Function Factors Limiting Gait Function Decreased Activity Tolerance, Decreased Strength,Limited Range of Motion,Poor Balance Comments Gait Comments pt ambulated using FWW 125 ft x 2 SBA to CGA and occasional cues for quad activation. 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 pt stated that her daughters are NAC before and knows how to assist her and use the safety belt. Stair Climbing Assessment Evaluation Level of Assist On Stairs Contact Guard Assistance, Minimal Assistance,1 Person Assistance Devices Stair Climbing Assistive Devices Right Railing Technique/Endurance Stair Climbing Direction Ascend and Descend Stair Climbing Technique Step to Step Number of Steps Climbed 3 Query Text: Stair Climbing Set # Repetitions (reps) 2 Comments Stair Climbing Comments pt completed steps initially with PT assist and cues. caregiver training conducted with pt's daughter and completed up/down steps again with daughter assisting and was able to assist pt safely. PT-Balance Assessment Sitting Balance and Reactions Static Sitting Balance Ability Normal Dynamic Sitting Balance Ability Normal Standing Balance and Reactions Static Standing Balance Ability Fair Dynamic Standing Balance Ability Fair Device Used FWW M5 PT-IP Objective Assessments Start: 12/24/18 17:36 Freq: NEEDED Status: Active Protocol: Document 12/24/18 14:55 AB (Rec: 12/24/18 17:59 AB [id number]) Orientation Orientation/Cognition Level of Alertness Alert Orientation Name,Place,Situation Language Function Ability No Deficits Noted Safety Awareness Decreased Safety Awareness Memory Description No Deficits Noted Gross Range of Motion Lower Extremity ROM Assessment Within Functional Limits Strength Lower Extremity Strength Assessment Right Impaired Hip 4-/5 Knee 3+/5 Coordination Assessment Gross Coordination Gross Coordination WNL Sensation Assessment Comments Sensation Comments c/o numbness of groing/buttcks area. Muscle Tone Muscle Tone WNL Yes M6 PT-IP Treatment Start: 12/24/18 17:36 Freq: NEEDED Status: Active Protocol: Document 12/24/18 14:55 AB (Rec: 12/24/18 17:59 AB [id number]) Physical Therapy Treatment Exercises Exercises Quad Sets,Heel Slides Education Education Provided Precautions,Weight Bearing Status,Post-Op Packet,Safety M7 PT-IP Assessment and Plan Start: 12/24/18 17:36 Freq: NEEDED Status: Active Protocol: Document 12/24/18 14:55 AB (Rec: 12/24/18 17:59 AB [id number]) PT Summary Assessment and Plan Potential Rehabilitation Potential Good Status of Condition at Evaluation Stable Summary Impairments Pain,ROM,Strength,Balance, Coordination,Sensation,Bed Mobility,Transfers,Gait, Activity Tolerance Assessment Summary pt requiring SBA to CGA with mobility and will have assist at home. pt is set up for outpt PT. caregiver training conducted with pt's daughter. pt stated that her daughter are NACs before and knows how to assist her. pt is already set up for outpt PT. pt may go home when medically stable. Goals Bed Mobility Goal Independent Transfer Goal Independent,Front Wheeled Walker Gait Goal Independent,Front Wheel Walker Gait Distance 250 Other Goals up/down 6 steps with L rail ascending and 7 steps with R rail ascending SBA Days to Meet Goals 3 Frequency of Treatment Frequency Of Treatment Twice a Day Treatment Plan Physical Therapy Treatment Plan Bed Mobility Training,Transfer Training,Gait Training, Therapeutic Exercise,Balance Retraining,Post Op Education, Discharge Planning,Hot or Cold Pack,Neuromuscular Re-ed, Coordination Retraining,Manual Therapy Recommendations To Nursing Amount of Assist Needed 1 Person Assist Discharge Recommendations PT Discharge Recommendations Home with Assistance, Outpatient PT
--- NOTE | 2018-12-24 15:39 | PT.IIE ---
Current Diagnoses Unilateral primary osteoarthritis, right knee (12/24/18) Surgery Performed Operation Date: 12/24/18 08:45 Actual Procedures p Total Knee Arthroplasty(Right) - Jose Luis Kaye MD Surgical History (Last Updated 12/12/18 @ 10:00 by Marlin Mireles RN) History of total left hip arthroplasty (Acute 05/26/18) Hx of tubal ligation (Acute) Medical History (Last Updated 05/23/18 @ 09:15 by Marlin Mireles RN) Diverticulosis (Acute) Former smoker (Acute) HTN (hypertension) (Acute) Kidney stones (Acute) Migraines (Acute) Osteoarthritis (Acute) Physical Therapy Inpatient Evaluation/Re-Eval M1 PT/OT-IP Prior Functional Status Start: 12/24/18 17:36 Freq: NEEDED Status: Active Protocol: Document 12/24/18 14:55 AB (Rec: 12/24/18 17:59 AB [id number]) Medical Review Prior Functional Status Medical History Reviewed Yes Communication able to make needs known Mobility and Gait pt stated that she is independent with all mobilities and ambulation without AD Social History Household Members spouse,children Living Arrangements House Number of Floors (Floors) Two Floors Number of Stairs To Enter/Railing? has 3 steps to enter with bilateral wide rails and can only use one rail at a time ( daughter stated that pt will use R rail) Home Environment Standard Height Toilet,Walk in Shower Home Equipment Front Wheel Walker,Straight Cane,Raised Toilet Seat Without Armrests,Shower Seat with Backrest,Hand Held Shower Employment Status Retired Additional Social History Comment pt will have spouse to assist her and daughter will also come in to assist pt. M2 PT-IP Current Condition Start: 12/24/18 17:36 Freq: NEEDED Status: Active Protocol: Document 12/24/18 14:55 AB (Rec: 12/24/18 17:59 AB [id number]) Physical Therapy Current Condition Current Condition Evaluation Date 12/24/18 Treatment Diagnosis s/p R TKA; difficulty in walking Onset Date 12/24/18 Weight Bearing Status Weight Bearing Status Weight Bear as Tolerated M3 PT-IP Subjective Start: 12/24/18 17:36 Freq: NEEDED Status: Active Protocol: Document 12/24/18 14:55 AB (Rec: 12/24/18 17:59 AB [id number]) Subjective Physical Therapy Visit Type Type Initial Evaluation Visit Start Time 14:55 Visit Stop Time 15:39 Total Visit Minutes 44 Number of PIPE JEEPER Visits 0 Physical Therapy Visit Comments Patient Comments pt agreeable to do PT Patient Goals to go home Therapy Pain Assessment Pain Present Pain Present Denied Pain M4 PT-IP Mobility and Gait Start: 12/24/18 17:36 Freq: NEEDED Status: Active Protocol: Document 12/24/18 14:55 AB (Rec: 12/24/18 17:59 AB [id number]) PT-Bed Mobility Assessment Supine to Sit Supine to Sit Standby Assistance Sit to Supine Sit to Supine Standby Assistance Scooting Scooting to Edge of Bed Standby Assistance PT-Transfer Assessment Sit to and From Stand Sit to and from Stand Contact Guard Assistance,1 Person Assistance,Use of Upper Extremities Equipment Transfer Assistive Device Gait Belt,Front Wheeled Walker Orthotic/Prosthetic Devices or Brace: No Transfers Transfer Destination Toilet Transfer Technique pt ambulated using FWW Transfer Ability Level of Assist Contact Guard Assistance Comments Mobility Comments pt requested to use the toilet . pt completed bed mobility supine to sit SBA. pt was able to sit on EOB SBA and completed sit to stand CGA. pt ambulated to the toilet using FWW CGA ~ 10 ft. pt was able to complete sit <>stand using grab bar from the toilet CGA. pt was able to position brief and completed sit to stand CGA using garb bars. was able to pull up brief but wiht (+) LOB requiring min A. pt tends to do things quickly and requires cues for safely. educated pt on how to balance and manage brief safely. pt understood and agreed. pt agreed to ambulate farther and do stairs. pt requested to sit up on chair after ambulation. set pt up on chair. ice pack provided. call light and table placed within reach. Gait Assessment Gait Gait Assistance Required: Standby Assistance,Contact Guard Assist Distance (Feet) 125 Able to Maintain Weight Bearing Status Yes During Gait Assistive Devices Assistive Device Gait Belt,Front Wheeled Walker Orthotic/Prosthetic Devices or Brace: No Gait Deviations General Gait Pattern Antalgic,Decreased Stride Length,Decreased Feet Clearance Factors Limiting Gait Function Factors Limiting Gait Function Decreased Activity Tolerance, Decreased Strength,Limited Range of Motion,Poor Balance Comments Gait Comments pt ambulated using FWW 125 ft x 2 SBA to CGA and occasional cues for quad activation. 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 pt stated that her daughters are NAC before and knows how to assist her and use the safety belt. Stair Climbing Assessment Evaluation Level of Assist On Stairs Contact Guard Assistance, Minimal Assistance,1 Person Assistance Devices Stair Climbing Assistive Devices Right Railing Technique/Endurance Stair Climbing Direction Ascend and Descend Stair Climbing Technique Step to Step Number of Steps Climbed 3 Query Text: Stair Climbing Set # Repetitions (reps) 2 Comments Stair Climbing Comments pt completed steps initially with PT assist and cues. caregiver training conducted with pt's daughter and completed up/down steps again with daughter assisting and was able to assist pt safely. PT-Balance Assessment Sitting Balance and Reactions Static Sitting Balance Ability Normal Dynamic Sitting Balance Ability Normal Standing Balance and Reactions Static Standing Balance Ability Fair Dynamic Standing Balance Ability Fair Device Used FWW M5 PT-IP Objective Assessments Start: 12/24/18 17:36 Freq: NEEDED Status: Active Protocol: Document 12/24/18 14:55 AB (Rec: 12/24/18 17:59 AB [id number]) Orientation Orientation/Cognition Level of Alertness Alert Orientation Name,Place,Situation Language Function Ability No Deficits Noted Safety Awareness Decreased Safety Awareness Memory Description No Deficits Noted Gross Range of Motion Lower Extremity ROM Assessment Within Functional Limits Strength Lower Extremity Strength Assessment Right Impaired Hip 4-/5 Knee 3+/5 Coordination Assessment Gross Coordination Gross Coordination WNL Sensation Assessment Comments Sensation Comments c/o numbness of groing/buttcks area. Muscle Tone Muscle Tone WNL Yes M6 PT-IP Treatment Start: 12/24/18 17:36 Freq: NEEDED Status: Active Protocol: Document 12/24/18 14:55 AB (Rec: 12/24/18 17:59 AB [id number]) Physical Therapy Treatment Exercises Exercises Quad Sets,Heel Slides Education Education Provided Precautions,Weight Bearing Status,Post-Op Packet,Safety M7 PT-IP Assessment and Plan Start: 12/24/18 17:36 Freq: NEEDED Status: Active Protocol: Document 12/24/18 14:55 AB (Rec: 12/24/18 17:59 AB [id number]) PT Summary Assessment and Plan Potential Rehabilitation Potential Good Status of Condition at Evaluation Stable Summary Impairments Pain,ROM,Strength,Balance, Coordination,Sensation,Bed Mobility,Transfers,Gait, Activity Tolerance Assessment Summary pt requiring SBA to CGA with mobility and will have assist at home. pt is set up for outpt PT. caregiver training conducted with pt's daughter. pt stated that her daughter are NACs before and knows how to assist her. pt is already set up for outpt PT. pt may go home when medically stable. Goals Bed Mobility Goal Independent Transfer Goal Independent,Front Wheeled Walker Gait Goal Independent,Front Wheel Walker Gait Distance 250 Other Goals up/down 6 steps with L rail ascending and 7 steps with R rail ascending SBA Days to Meet Goals 3 Frequency of Treatment Frequency Of Treatment Twice a Day Treatment Plan Physical Therapy Treatment Plan Bed Mobility Training,Transfer Training,Gait Training, Therapeutic Exercise,Balance Retraining,Post Op Education, Discharge Planning,Hot or Cold Pack,Neuromuscular Re-ed, Coordination Retraining,Manual Therapy Recommendations To Nursing Amount of Assist Needed 1 Person Assist Discharge Recommendations PT Discharge Recommendations Home with Assistance, Outpatient PT
[2018-12-24] MEDS: OXYCODONE IR 5 MG TABLET PO (16:00)
--- NOTE | 2018-12-24 17:24 | PC.NURSE ---
Addendum entered by Zita Lake R.N. 12/24/18 18:44: Pt escorted by staff to waiting vehicle in stable pot op status. Addendum entered by Zita Lake R.N. 12/24/18 18:33: HL discontinued intact. D/C instructions given w/pt understanding. Addendum entered by Zita Lake R.N. 12/24/18 18:13: Pt voided 370cc Will prepare for D/C. Original Note: Pt sitting in chair, [facility] Med @ 1600 for discomfort w/good relief. Dsg to right knee CDI. Pt awaiting to void so may D/C home.
== END 2018-12-24 18:44 | disposition home or self-care (01) | DRG 470 ==
LOC: AC 13:57 → OR 10-28 13:49
PROVIDERS: PCP Student in an Organized Health Care Education/Training Program; Visit Provider Orthopaedic Surgery
PROC: 0SRC0JZ Replacement of Right Knee Joint with Synthetic Substitute, Open Approach (ICD-10-PCS; CPT 27447; principal; 2018-12-24 08:45)
DX: M17.11 Unilateral primary osteoarthritis, right knee (principal); I10 Essential (primary) hypertension; Z96.641 Presence of right artificial hip joint; Z87.891 Personal history of nicotine dependence
CPT/HCPCS: 27447; 73560; 97116; 97161; C1776; C9290; J0690; J1100; J2250; J2405; J2704; J3010

== ENCOUNTER → 2019-02-06 07:53 | Outpatient (CLI) | payer BC, SELFPAY ==
[2018-12-24 11:34] VITALS: BMI 28.8
--- NOTE | 2019-02-06 | DI.MG.S_ITS ---
BILATERAL DIGITAL SCREENING MAMMOGRAM 3D/2D WITH CAD: 02/06/2019 CLINICAL: Routine screening. Family history of breast cancer. Comparison is made to exams dated: 02/04/2018 mammogram, 01/31/2017 mammogram, and 01/23/2016 mammogram - [facility]. The tissue of both breasts is heterogeneously dense. This may lower the sensitivity of mammography. Current study was also evaluated with a Computer Aided Detection (CAD) system. No significant masses, calcifications, or other findings are seen in either breast. There has been no significant interval change. IMPRESSION: NEGATIVE There is no mammographic evidence of malignancy. A 1 year screening mammogram is recommended. This exam was interpreted at Station ID: [id number]. NOTE: For mammograms, a report in lay terms will be sent to the patient. Approximately 15% of breast malignancies will not be visualized mammographically. In the management of a palpable breast mass, a negative mammogram must not discourage biopsy of a clinically suspicious lesion. Electronically Signed By: Jose Luis harley/shade:02/06/2019 08:45:43 letter sent: Normal Exam ACR BI-RADS Category 1: Negative 3341F
== END ==
PROVIDERS: PCP Student in an Organized Health Care Education/Training Program; Visit Provider Student in an Organized Health Care Education/Training Program
DX: Z12.31 Encounter for screening mammogram for malignant neoplasm of breast (principal); Z80.3 Family history of malignant neoplasm of breast
CPT/HCPCS: 77063; 77067

== ENCOUNTER → 2019-03-13 10:07 | Outpatient (CLI) | payer BC, SELFPAY ==
[2018-12-24 11:34] VITALS: BMI 28.8
--- NOTE | 2019-03-13 | DI.US.S_ITS ---
PROCEDURE: US PELVIC COMPLETE INDICATIONS: CERVICAL POLYP TECHNIQUE: Real-time scanning was performed of the pelvic organs, with image documentation. Additional endovaginal scanning was necessary due to incomplete visualization of the adnexal and endometrial structures by transabdominal scanning. COMPARISON: None. FINDINGS: Transabdominal scanning: Limited scanning through the kidneys shows no hydronephrosis. No pathologic free abdominal or pelvic fluid. Endovaginal scanning: Uterus: Uterus is normal in size at 9.2 x 4.5 x 5.9 cm. Right anterior intramural fibroid measuring 3.1 x 3.5 x 3.6 cm. The endometrium measures 9 mm in combined thickness. Echogenic structure in the lower uterine segment/cervix measuring 1.1 x 0.3 x 0.7 cm. No definite internal vascularity is demonstrated. Ovaries: Not identified. IMPRESSION: 1. Echogenic structure in the lower uterine segment/cervix measuring 1.1 cm. This may represent a small endometrial polyp. Saline infusion sonogram or biopsy is recommended. 2. Endometrial thickness measures 9 mm. The endometrium appears thickened in this patient who is presumably postmenopausal. 3. Small intramural fibroid. 4. Ovaries are not identified. Dictated by: Eber Johnson M.D. on 03/13/2019 at 16:22 Approved by: Eber Johnson M.D. on 03/13/2019 at 16:29
== END ==
PROVIDERS: PCP Student in an Organized Health Care Education/Training Program; Visit Provider Student in an Organized Health Care Education/Training Program
DX: N84.1 Polyp of cervix uteri (principal); D25.1 Intramural leiomyoma of uterus; R93.89 Abnormal findings on diagnostic imaging of other specified body structures
CPT/HCPCS: 76830; 76856

== ENCOUNTER → 2020-02-15 16:12 | Outpatient (CLI) | payer BC, SELFPAY ==
[2018-12-24 11:34] VITALS: BMI 28.8
--- NOTE | 2020-02-15 | DI.MG.S_ITS ---
BILATERAL DIGITAL SCREENING MAMMOGRAM 3D/2D WITH CAD: 02/15/2020 CLINICAL: Routine screening. Family history of breast cancer. Comparison is made to exams dated: 02/06/2019 mammogram, 02/04/2018 mammogram, and 01/31/2017 mammogram - [facility]. The tissue of both breasts is heterogeneously dense. This may lower the sensitivity of mammography. Current study was also evaluated with a Computer Aided Detection (CAD) system. No significant masses, calcifications, or other findings are seen in either breast. There has been no significant interval change. IMPRESSION: NEGATIVE There is no mammographic evidence of malignancy. A 1 year screening mammogram is recommended. This exam was interpreted at Station ID: [id number]. NOTE: For mammograms, a report in lay terms will be sent to the patient. Approximately 15% of breast malignancies will not be visualized mammographically. In the management of a palpable breast mass, a negative mammogram must not discourage biopsy of a clinically suspicious lesion. Electronically Signed By: Jose Luis harley/shade:02/16/2020 10:46:47 letter sent: Normal Exam ACR BI-RADS Category 1: Negative 3341F
== END ==
PROVIDERS: PCP Student in an Organized Health Care Education/Training Program; Referring Provider Student in an Organized Health Care Education/Training Program; Visit Provider Student in an Organized Health Care Education/Training Program
DX: Z12.31 Encounter for screening mammogram for malignant neoplasm of breast (principal)
CPT/HCPCS: 77063; 77067

== ENCOUNTER 2020-03-05 09:27 | Inpatient (IN) | payer BC, SELFPAY ==
[2018-12-24 11:34] VITALS: BMI 28.8
[2020-03-05] VITALS (27 sets, daily range): BP systolic 106–161; BP diastolic 57–86; PULSE 96–123; RESP 14–97; TEMP 36.7–38.8; O2SAT 17–98; BMI 33.3
--- NOTE | 2020-03-05 | PATH_ITS ---
[facility] Accession Number: [id number] . 01 Material submitted: . appendix - APPENDIX . 01 Clinical history: . EXTREME ABOMINAL PAIN . 02 Diagnosis: Appendix, Appendectomy: Acute suppurative appendicitis with marked serositis. Negative for dysplasia and malignancy. [facility] 03/10/2020 1403 Local . 02 Electronically signed: . Zainab Vincent MD, Pathologist NPI- [id number] . 01 Gross description: . Received in formalin, labeled with the patient's name and appendix, is a 5.0 cm in length by 1.1 cm in diameter appendix with staple line at resection margin, margin inked blue, covered with purple-chu serosa with adhesions and distally yellow-chu patchy exudate. No gross perforation is identified. No fecaliths identified. The specimen has red-brown hemorrhagic mucosa and intact tip. [employer] sections are submitted. . Summary of sections: A1. Appendix resection margin, cross-sections, and half of bisected tip, four pieces. ([id number]) /[facility] 03/10/2020 1555 Local . 02 Pathologist provided ICD-10: K35.20 . 02 CPT . 226035 Performed at: [address] [facility] [address], [place], [place] [id number] MD Jose Luis Centeno MD Phone: [phone] Performed at: 02 [facility] [address] [place], [place] [id number] MD Zainab Vincent MD Phone: [phone]
--- NOTE | 2020-03-05 09:41 | ED_ITS ---
HPI - Abdominal Pain General Chief Complaint: Abdominal Pain Stated Complaint: EXTREME ABDOMINAL PAIN Time Seen by Provider: 03/05/20 09:40 Source: patient Mode of arrival: Ambulatory Limitations: no limitations History of Present Illness HPI narrative: 59-year-old woman with a history of hypertension presents with increasing abdominal pain. Symptoms began almost 48 hours ago with mild periumbilical pain that has progressively gotten worse and is now localizing to the right lower quadrant and suprapubic area. Was initially uncomfortable enough that she had some difficulty sleeping and now is so uncomfortable she has clear peritoneal signs and has trouble taking a deep breath or moving. She does not describe significant fevers, cough, chills. No dysuria no change to bowel or bladder habits and bowel movements do not influence her pain. No vaginal discharge. No lower extremity edema, chest pain or palpitations. Related Data Home Medications Medication Instructions Recorded Confirmed cholecalciferol (vitamin D3) 8,000 unit PO DAILY #0 01/15/17 04/17/19 [Vitamin D3] lisinopril 20 mg PO QDAY #0 01/15/17 04/17/19 vitamin B complex [B 2 tab PO QDAY #0 01/15/17 04/17/19 Complex-Vitamin B12] acetaminophen [Tylenol Extra 1,000 mg PO Q6H PRN 05/26/18 04/17/19 Strength] multivitamin 1 cap PO DAILY 12/24/18 04/17/19 ibuprofen 100 mg tablet 200 mg PO QID PRN 04/17/19 04/17/19 Allergies Allergy/AdvReac Type Severity Reaction Status Date / Time bee venom protein (honey bee) Allergy Severe Anaphylaxis Verified 03/05/20 09:36 Review of Systems Review of Systems Narrative: Remainder of review of systems including constitutional, ENT, cardiovascular, respiratory, GI, , musculoskeletal, skin, neurologic and psychiatric systems reviewed and are unremarkable except as noted in HPI. Last food was 9:00 a.m. this morning, a small bite of a Evelio cracker and sips of water. Patient History Medical History Chicken pox Diverticulosis Former smoker Fractures (~2014) HTN (hypertension) Kidney stones Measles Migraines Mumps Osteoarthritis (~2014) Surgical History History of total left hip arthroplasty (05/26/18) History of total right hip replacement (~2019) History of total right knee replacement (~2019) Hx of tubal ligation Family History Grandfather Dementia Social History household members: spouse and children Smoking Status: Current some day smoker alcohol intake: current Smoking Status: Current some day smoker alcohol intake frequency: 0-2 drinks per day Substance Use Type: does not use Exam Narrative Exam Narrative: General: Healthy appearing, in obvious abdominal pain with legs drawn up to her abdomen, Able to give a complete and coherent history. Well-nou rished well-developed HEENT: Moist mucous membranes, normal sclera with reactive pupils, Neck: supple Respiratory: Lungs are clear to auscultation, no wheezing no rales no rhonchi. Full and symmetrical air movement Cardiac: Regular rate and rhythm, 3/6 systolic ejection murmur, no bruits Abdomen: Soft, without significant distension. Mild diffuse tenderness with severe tenderness with significant rebound in the right lower quadrant and suprapubic area. no bowel tones, no flank pain Skin: Warm and dry, no rashes Neurologic: Grossly neurologically intact with no obvious asymmetries or a bnormalities Extremities: No trauma, well perfused Psych: Cooperative, appropriate insight and affect Initial Vital Signs Initial Vital Signs: Vital Signs Temperature 99.7 F H 03/05/20 09:32 Pulse Rate 123 H 03/05/20 09:32 Respiratory Rate 21 03/05/20 09:32 Blood Pressure 152/86 H 03/05/20 09:32 Pulse Oximetry 98 03/05/20 09:32 Course Orders Ordered: ED Orders 03/05/20 09:36 EKG-12 Lead Stat 03/05/20 09:37 Complete Blood Count AUTO DIFF Stat Comprehensive Metabolic Panel Stat Lactate (Lactic Acid) Stat Lipase Stat Partial Thromboplastin Time Stat Prothrombin Time INR Stat 03/05/20 09:49 CT abdomen pelvis w con Stat Urinalysis and Microscopic Stat 03/05/20 09:50 Blood Culture Stat 03/05/20 10:00 COVID19 Stat Hydromorphone HCl (Hydromorphone 0.5 Mg Inj) 0.5 mg IV Q15MIN PRN PRN Reason: Pain, Last Admin: 03/05/20 11:34 Dose: 0.5 mg Documented by: Admin: 03/05/20 10:02 Dose: 0.5 mg Documented by: MIRNA Famotidine (Pepcid) 20 mg in 50 mls @ 200 mls/hr IV NOW ONE Stop: 03/05/20 12:09 Piperacillin Sod/Tazobactam (Sod 4.5 gm/ Sodium Chloride) 100 mls @ 200 mls/hr IV NOW ONE Stop: 03/05/20 12:24 Sodium Chloride (Normal Saline 0.9%) 1,000 mls @ 150 mls/hr IV CONT SONALI Sodium Chloride (Normal Saline 0.9%) 1,000 mls @ 125 mls/hr IV CONT SONALI Discontinued Medications Sodium Chloride (Normal Saline 0.9%) 1,000 mls @ 1,000 mls/hr IV BOLUS ONE Stop: 03/05/20 10:47 Last Infusion: 03/05/20 11:06 Dose: 0 mls/hr Documented by: Admin: 03/05/20 10:01 Dose: 1,000 mls/hr Documented by: MIRNA Metoclopramide HCl (Metoclopramide 10 Mg/2 Ml Inj) 10 mg IV NOW ONE Stop: 03/05/20 11:56 Ondansetron HCl (Ondansetron 4 Mg/2 Ml Inj) 4 mg IV NOW ONE Stop: 03/05/20 09:49 Last Admin: 03/05/20 10:02 Dose: 4 mg Documented by: MIRNA Vital Signs Vital signs: Vital Signs - 8 hr 03/05/20 09:32 03/05/20 09:35 03/05/20 10:00 Temperature 99.7 F H Pulse Rate 123 H 121 H 115 H Respiratory Rate 21 28 H Blood Pressure 152/86 H 161/85 H Pulse Oximetry 98 97 96 03/05/20 10:30 03/05/20 11:00 03/05/20 11:30 Temperature Pulse Rate 107 H 102 H 109 H Respiratory Rate 21 21 27 H Blood Pressure 114/65 107/62 111/69 Pulse Oximetry 95 94 94 MDM - Abdominal Pain Medical Records Attestation: I reviewed the patient's medical records. Lab Data Attestation: I reviewed the patient's lab results. Result diagrams: 03/05/20 09:37 03/05/20 09:37 Labs: Lab Results 03/05/20 03/05/20 03/05/20 Range/Units 09:37 09:37 09:37 WBC 12.4 H (4.5-11.0) X10^3/uL RBC 4.77 (4.0-5.2) X10^6/uL Hgb 15.1 (12.0-16.0) g/dL Hct 44.3 (36-46) % MCV 92.8 (80-100) fL MCH 31.7 (26-34) PG MCHC 34.2 (30-36) % RDW 13.4 (11.6-14.8) % Plt Count 294 (150-400) X10^3/uL Neut % (Auto) 90.0 H (50-75) % Lymph % (Auto) 3.9 L (25-40) % [place] % (Auto) 5.7 (3-14) % Eos % (Auto) 0.1 L (2-4) % Baso % (Auto) 0.3 (0-2) % Neut # (Auto) 68118 H (2446-7344) /uL Lymph # (Auto) 500 L (4330-9229) /uL [place] # (Auto) 700 (0-900) /uL Eos # (Auto) 0 (0-450) /uL Baso # (Auto) 0 (0-100) /uL PT 13.6 H (10.1-12.7) SECONDS INR 1.2 (0.9-1.3) APTT 30 (26.4-36.2) SECONDS Sodium 136 L (137-145) mmol/L Potassium 3.8 (3.4-5.1) mmol/L Chloride 102 (98-107) mmol/L Carbon Dioxide 26 (22-32) mmol/L BUN 18 H (7-17) mg/dL Creatinine 0.55 (0.52-1.04) mg/dL Estimated GFR > 60.0 (>60) mL/min BUN/Creatinine Ratio 32.7 H (6-22) Glucose 130 H (70-100) mg/dL Lactate (0.7-2.1) mmol/L Calcium 9.5 (8.4-10.2) mg/dL Total Bilirubin 1.1 (0.2-1.3) mg/dL AST 29 (14-36) IU/L ALT 17 (<35) IU/L Alkaline Phosphatase 72 (38-126) U/L Total Protein 7.8 (6.3-8.2) g/dL Albumin 4.5 (3.5-5.0) g/dL Globulin 3.3 (1.7-4.1) g/dL Albumin/Globulin Ratio 1.4 (1.0-2.8) Lipase 119 (23-300) U/L COVID-19 PCR (Negative) 03/05/20 03/05/20 Range/Units 09:37 10:00 WBC (4.5-11.0) X10^3/uL RBC (4.0-5.2) X10^6/uL Hgb (12.0-16.0) g/dL Hct (36-46) % MCV (80-100) fL MCH (26-34) PG MCHC (30-36) % RDW (11.6-14.8) % Plt Count (150-400) X10^3/uL Neut % (Auto) (50-75) % Lymph % (Auto) (25-40) % [place] % (Auto) (3-14) % Eos % (Auto) (2-4) % Baso % (Auto) (0-2) % Neut # (Auto) (9493-3263) /uL Lymph # (Auto) (5904-5899) /uL [place] # (Auto) (0-900) /uL Eos # (Auto) (0-450) /uL Baso # (Auto) (0-100) /uL PT (10.1-12.7) SECONDS INR (0.9-1.3) APTT (26.4-36.2) SECONDS Sodium (137-145) mmol/L Potassium (3.4-5.1) mmol/L Chloride (98-107) mmol/L Carbon Dioxide (22-32) mmol/L BUN (7-17) mg/dL Creatinine (0.52-1.04) mg/dL Estimated GFR (>60) mL/min BUN/Creatinine Ratio (6-22) Glucose (70-100) mg/dL Lactate 1.2 (0.7-2.1) mmol/L Calcium (8.4-10.2) mg/dL Total Bilirubin (0.2-1.3) mg/dL AST (14-36) IU/L ALT (<35) IU/L Alkaline Phosphatase (38-126) U/L Total Protein (6.3-8.2) g/dL Albumin (3.5-5.0) g/dL Globulin (1.7-4.1) g/dL Albumin/Globulin Ratio (1.0-2.8) Lipase (23-300) U/L COVID-19 PCR Negative (Negative) Imaging Data CT scan - abdomen/pelvis: Radiologist's Impression: FINDINGS: Image quality: Excellent. ABDOMEN: Lung bases: Mild atelectasis at the right lung base. Question of trace right effusion. No effusion on the left. Heart size is normal. Question of small hiatal hernia. Solid organs: Liver is normal in size and enhancement. Focal fatty infiltration adjacent to the falciform ligament. Gallbladder is unremarkable. Biliary system is non dilated. Pancreas enhances normally. Spleen is normal in size and enhancement. No adrenal nodules. Kidneys demonstrate normal size and enhancement, without hydronephrosis. Peritoneum and bowel: Appendix is dilated up to 1.4 cm, (2/53). There is moderate surrounding inflammatory change. No free air. No loculated fluid collection. The adjacent ilium demonstrates inflammatory change. No small bowel obstruction. A few loops of distal small bowel are at the upper limits of normal in caliber. There is a small amount of free fluid in the right pericolic gutter. Nodes and vessels: No retroperitoneal or mesenteric adenopathy by size criteria. Aorta and inferior vena cava are normal in size. Retroaortic left renal vein, vari ant. Miscellaneous: No ventral hernias. PELVIS: Genitourinary: Bladder is not well visualized due to beam hardening artifact. Uterus is mildly prominent with suspected fundal fibroid. Miscellaneous: No inguinal hernias or adenopathy. Bones: No suspicious bony lesions. Right hip total arthroplasty. No vertebral body compression fractures. IMPRESSION: 1. Findings suggestive of acute appendicitis. Appendix is dilated up to 1.4 cm and there is moderate surrounding inflammatory change centered around the appendix. 2. Small amount of fluid in the right pericolic gutter likely reactive. No pneumoperitoneum to suggest rupture. 3. There is also inflammatory change surrounding the adjacent loops of small bowel. Less likely these findings could be due to inflammatory bowel disease. 4. Suspect fundal uterine fibroid. Dictated by: Eber Johnson M.D. on 03/05/2020 at 10:34 ECG Data Attestation: I personally reviewed and interpreted this ECG as follows: Interpretation: Sinus tachycardia at 119 Normal axis, normal intervals No acute ischemic changes MDM Narrative Medical decision making narrative: 59-year-old woman with increasing abdominal pain, now localizing to right lower quadrant with peritoneal signs. Mildly increased white blood cell count and CT scan suggests acute appendicitis. COVID scan is negative today. Will contact Dr. Patel, general surgery. Patient will be admitted with fluids, pain medication, Zosyn. Dr. Patel is currently in the operating room and will evaluate her once he is immediately available. Findings and concerns are discussed with patient and questions were answered. Discharge Plan Departure Patient Disposition: Admitted as Observation Clinical Impression: Acute appendicitis Qualifiers: Acute appendicitis type: with localized peritonitis Appendicitis gangrene presence: without gangrene Appendicitis perforation presence: without perforation Appendicitis abscess presence: unspecified whether abscess present Qualified Code(s): K35.30 - Acute appendicitis with localized peritonitis, without perforation or gangrene Admit Date/Time: 03/05/20 11:56 Admit Provider: Skyler Patel
--- NOTE | 2020-03-05 09:49 | DI.CT.S_ITS ---
PROCEDURE: CT ABDOMEN PELVIS W CON INDICATIONS: RLQ pain, ? appy, ? perf TECHNIQUE: After the administration of intravenous contrast, 5 mm thick sections acquired from the diaphragm to the symphysis. 5 mm coronal and sagittal reformats were acquired. For radiation dose reduction, the following was used: automated exposure control, adjustment of mA and/or kV according to patient size. COMPARISON: None. FINDINGS: Image quality: Excellent. ABDOMEN: Lung bases: Mild atelectasis at the right lung base. Question of trace right effusion. No effusion on the left. Heart size is normal. Question of small hiatal hernia. Solid organs: Liver is normal in size and enhancement. Focal fatty infiltration adjacent to the falciform ligament. Gallbladder is unremarkable. Biliary system is non dilated. Pancreas enhances normally. Spleen is normal in size and enhancement. No adrenal nodules. Kidneys demonstrate normal size and enhancement, without hydronephrosis. Peritoneum and bowel: Appendix is dilated up to 1.4 cm, (2/53). There is moderate surrounding inflammatory change. No free air. No loculated fluid collection. The adjacent ilium demonstrates inflammatory change. No small bowel obstruction. A few loops of distal small bowel are at the upper limits of normal in caliber. There is a small amount of free fluid in the right pericolic gutter. Nodes and vessels: No retroperitoneal or mesenteric adenopathy by size criteria. Aorta and inferior vena cava are normal in size. Retroaortic left renal vein, variant. Miscellaneous: No ventral hernias. PELVIS: Genitourinary: Bladder is not well visualized due to beam hardening artifact. Uterus is mildly prominent with suspected fundal fibroid. Miscellaneous: No inguinal hernias or adenopathy. Bones: No suspicious bony lesions. Right hip total arthroplasty. No vertebral body compression fractures. IMPRESSION: 1. Findings suggestive of acute appendicitis. Appendix is dilated up to 1.4 cm and there is moderate surrounding inflammatory change centered around the appendix. 2. Small amount of fluid in the right pericolic gutter likely reactive. No pneumoperitoneum to suggest rupture. 3. There is also inflammatory change surrounding the adjacent loops of small bowel. Less likely these findings could be due to inflammatory bowel disease. 4. Suspect fundal uterine fibroid. Dictated by: Eber Johnson M.D. on 03/05/2020 at 10:34 Approved by: Eber Johnson M.D. on 03/05/2020 at 10:43
[2020-03-05 09:51] LABS: Add Manual Diff / Slide Review NO; Basophils Absolute Auto 0 /uL (0-100); Basophils Percent Auto 0.3 % (0-2); Eosinophils Absolute Auto 0 /uL (0-450); Eosinophils Percent Auto 0.1 % (2-4); Hematocrit 44.3 % (36-46); Hemoglobin 15.1 g/dL (12.0-16.0); Lymphocytes Absolute Auto 500 /uL (1100-4500); Lymphocytes Percent Auto 3.9 % (25-40); Mean Corpuscular HGB Conc 34.2 % (30-36); Mean Corpuscular Hemoglobin 31.7 PG (26-34); Mean Corpuscular Volume 92.8 fL (80-100); Monocytes Absolute Auto 700 /uL (0-900); Monocytes Percent Auto 5.7 % (3-14); Neutrophils Absolute Auto 11100 /uL (1500-7000); Platelet Count 294 X10^3/uL (150-400); Red Blood Cell Count 4.77 X10^6/uL (4.0-5.2); Red Cell Distribution Width 13.4 % (11.6-14.8); White Blood Cell Count 12.4 X10^3/uL (4.5-11.0)
[2020-03-05 09:52] LABS: INR 1.2 (0.9-1.3); Prothrombin Time 13.6 SECONDS (10.1-12.7)
[2020-03-05 09:55] LABS: PTT Partial Thromboplastin Tim 30 SECONDS (26.4-36.2)
[2020-03-05 09:57] LABS: Alanine Aminotransferase 17 IU/L (<35); Albumin 4.5 g/dL (3.5-5.0); Albumin Globulin Ratio 1.4 (1.0-2.8); Alkaline Phosphatase 72 U/L (38-126); Aspartate Aminotransferase 29 IU/L (14-36); BUN Creatinine Ratio 32.7 (6-22); Bilirubin Total 1.1 mg/dL (0.2-1.3); Blood Urea Nitrogen 18 mg/dL (7-17); Calcium 9.5 mg/dL (8.4-10.2); Carbon Dioxide 26 mmol/L (22-32); Chloride 102 mmol/L (98-107); Estimated Glomerular Filt Rate > 60.0 mL/min (>60); Globulin 3.3 g/dL (1.7-4.1); Glucose 130 mg/dL (70-100); HEMOLYSIS 19 (0-50); Lipase 119 U/L (23-300); Potassium 3.8 mmol/L (3.4-5.1); Sodium 136 mmol/L (137-145); Total Protein 7.8 g/dL (6.3-8.2)
[2020-03-05] MEDS: SODIUM CHLORIDE 0.9% 1,000 ML 1000 ML IV (10:01)
[2020-03-05] MEDS: ONDANSETRON 4 MG/2 ML INJ IV (10:02)
[2020-03-05] MEDS: HYDROMORPHONE 0.5 MG INJ IV ×3 (10:02→14:27)
[2020-03-05 10:05] LABS: Lactate (Lactic Acid) 1.2 mmol/L (0.7-2.1)
[2020-03-05 10:18] LABS: COVID19 -Nasal RAPID Negative (Negative)
[2020-03-05] MEDS: PIPERACILLIN/TAZO 4.5 GM in SODIUM CHLORIDE 0.9% 100 ML 200 ML IV (12:03)
[2020-03-05] MEDS: FAMOTIDINE 20 MG/50 ML PIGGYBACK 200 MG IV (12:21)
[2020-03-05] MEDS: METOCLOPRAMIDE 10 MG/2 ML INJ IV (12:22)
[2020-03-05 12:28] LABS: Bacteria Urine None Seen
[2020-03-05 12:39] LABS: Culture Indicated Urine Cult Not Indicated; RBC Urine 1-5/HPF (0-5/HPF); WBC Urine 1-5/HPF (0-5/HPF)
[2020-03-05] MEDS: SODIUM CHLORIDE 0.9% 1,000 ML 150 ML IV (12:43)
--- NOTE | 2020-03-05 13:26 | PC.NURSE ---
Admit note: Patient admitted to room 217, awake, alert, and pleasantly cooperative. Oriented to room, environment, and plan of care. Patient NPO and IVF initiated. Dr. Patel at bedside. Consent obtained.
--- NOTE | 2020-03-05 13:31 | P.HP_ITS ---
History of Present Illness History of Present Illness Date Patient Seen: 03/05/20 Time Patient Seen: 13:32 Chief complaint: EXTREME ABDOMINAL PAIN Narrative: 59-year-old female seen in consultation for acute appendicitis. She developed victorino epigastric pain 2 days ago which has become focal in the right lower quadrant. CT abdomen pelvis demonstrates a dilated 1.4 cm pending with some slow colitis stranding no abscess or fluid collection. Admission white blood cell count 12 urinalysis negative COVID negative remainder of laboratory studies unremarkable. She received Zosyn in the emergency room. Medical history is significant for hypertension and tubal ligation. Patient History Medical History Chicken pox Diverticulosis Former smoker Fractures (~2014) HTN (hypertension) Kidney stones Measles Migraines Mumps Osteoarthritis (~2014) Surgical History History of total left hip arthroplasty (05/26/18) History of total right hip replacement (~2018) History of total right knee replacement (~2018) Hx of tubal ligation Family & Social History Family History Grandfather Dementia Social History: household members spouse,children Safety & Behavioral: Feels Safe in Current Yes Environment Been Physically Hurt or No Threatened By a Person Tobacco & Substance use: Tobacco type cigarettes Smoking Status Current some day smoker alcohol intake current alcohol intake frequency 0-2 drinks per day Substance Use Type does not use Meds Home Medications and Allergies Home Medications Medication Instructions Recorded Confirmed Type cholecalciferol (vitamin D3) 8,000 unit PO DAILY #0 01/15/17 04/17/19 History [Vitamin D3] lisinopril 20 mg PO QDAY #0 01/15/17 04/17/19 History vitamin B complex [B 2 tab PO QDAY #0 01/15/17 04/17/19 History Complex-Vitamin B12] acetaminophen [Tylenol Extra 1,000 mg PO Q6H PRN 05/26/18 04/17/19 History Strength] multivitamin 1 cap PO DAILY 12/24/18 04/17/19 History ibuprofen 100 mg tablet 200 mg PO QID PRN 04/17/19 04/17/19 History Allergies Allergy/AdvReac Type Severity Reaction Status Date / Time bee venom protein (honey bee) Allergy Severe Anaphylaxis Verified 03/05/20 09:36 Review of Systems Review of Systems Narrative: A 10 point review of systems is negative except as noted in the HPI Exam Vital Signs (past 8 hours): - 03/05/20 09:32 03/05/20 09:35 03/05/20 10:00 Temperature 99.7 F H Pulse Rate 123 H 121 H 115 H Respiratory Rate 21 28 H Blood Pressure 152/86 H 161/85 H Pulse Oximetry 98 97 96 03/05/20 10:30 03/05/20 11:00 03/05/20 11:30 Temperature Pulse Rate 107 H 102 H 109 H Respiratory Rate 21 21 27 H Blood Pressure 114/65 107/62 111/69 Pulse Oximetry 95 94 94 03/05/20 12:00 03/05/20 12:14 03/05/20 12:30 Temperature Pulse Rate 110 H 113 H 106 H Respiratory Rate 19 24 21 Blood Pressure 106/60 132/70 Pulse Oximetry 93 95 93 03/05/20 12:31 03/05/20 13:16 Temperature 98.6 F 98.8 F Pulse Rate 107 H 105 H Respiratory Rate 22 16 Blood Pressure 107/58 L 122/72 Pulse Oximetry 93 95 Oxygen Delivery Method Room Air Narrative Exam Narrative: General-no acute distress, well nourished HEENT-moist mucous membranes, no scleral icterus Neck-supple, no lymphadenopathy Chest- non labored respirations, clear to auscultation bilaterally Cardiac-regular rate no peripheral edema Abdomen-focal tenderness right lower Extremities-warm, well perfused Neurological-alert and oriented, no focal deficits Objective Labs Result Diagrams: 03/05/20 09:37 03/05/20 09:37 Labs: Laboratory Results - last 24 hr 03/05/20 03/05/20 03/05/20 09:37 09:37 09:37 WBC 12.4 H RBC 4.77 Hgb 15.1 Hct 44.3 MCV 92.8 MCH 31.7 MCHC 34.2 RDW 13.4 Plt Count 294 Neut % (Auto) 90.0 H Lymph % (Auto) 3.9 L [place] % (Auto) 5.7 Eos % (Auto) 0.1 L Baso % (Auto) 0.3 Neut # (Auto) 34605 H Lymph # (Auto) 500 L [place] # (Auto) 700 Eos # (Auto) 0 Baso # (Auto) 0 PT 13.6 H INR 1.2 APTT 30 Sodium 136 L Potassium 3.8 Chloride 102 Carbon Dioxide 26 BUN 18 H Creatinine 0.55 Estimated GFR > 60.0 BUN/Creatinine Ratio 32.7 H Glucose 130 H Lactate Calcium 9.5 Total Bilirubin 1.1 AST 29 ALT 17 Alkaline Phosphatase 72 Total Protein 7.8 Albumin 4.5 Globulin 3.3 Albumin/Globulin Ratio 1.4 Lipase 119 Urine RBC Urine WBC Urine Bacteria Ur Culture Indicated? COVID-19 PCR 03/05/20 03/05/20 03/05/20 09:37 10:00 12:14 WBC RBC Hgb Hct MCV MCH MCHC RDW Plt Count Neut % (Auto) Lymph % (Auto) [place] % (Auto) Eos % (Auto) Baso % (Auto) Neut # (Auto) Lymph # (Auto) [place] # (Auto) Eos # (Auto) Baso # (Auto) PT INR APTT Sodium Potassium Chloride Carbon Dioxide BUN Creatinine Estimated GFR BUN/Creatinine Ratio Glucose Lactate 1.2 Calcium Total Bilirubin AST ALT Alkaline Phosphatase Total Protein Albumin Globulin Albumin/Globulin Ratio Lipase Urine RBC 1-5/hpf Urine WBC 1-5/hpf Urine Bacteria None seen Ur Culture Indicated? Cult not indicated COVID-19 PCR Negative Assessment & Plan Assessment & Plan narrative: 59-year-old female with acute appendicitis. CT demonstrates dilated appendix no associated fluid collection. Recommended we proceed with a laparoscopic appendectomy. Technical details were described. Operative risks including bleeding infection conversion to open damage to surrounding structures were discussed. Her questions have been answered she is in agreement with this plan. Operation planed for this afternoon. -NPO -Zosyn -SCDs -Pain control
[2020-03-05] MEDS: LACTATED RINGERS 1,000 ML 42 ML IV ×2 (15:44→17:03)
[2020-03-05] MEDS: ACETAMINOPHEN 325 MG TABLET 975 MG PO (15:44)
--- NOTE | 2020-03-05 16:25 | SUR.OPER ---
Supine on padded OR bed, head on pillow, arm padded and tucked at side, legs uncrossed, safety belt at thigh, tape over blanket over lower legs .
[2020-03-05] MEDS: BUPIVACAINE 0.25% (PF) VIAL 30 ML INJ (16:35)
--- NOTE | 2020-03-05 18:13 | P.OP_ITS ---
Operative Date/Time/Diagnoses Date of procedure: 03/05/20 Time of procedure: 18:13 Pre-op diagnosis: acute appendicitis Post-op diagnosis: same Procedure & Clinicians Procedure: Laparoscopic appendectomy Same procedure as scheduled: Yes Indications: 59-year-old woman presented with 2 days of abdominal pain found have acute appendicitis on CT without abscess Surgeon: Skyler Patel Click Yes if Unassisted: Yes Anesthesia Type: General Operative Notes Findings: Perforated appendicitis with purulence Specimen(s): other (appendix) Estimated Blood Loss (mL): 50 Procedure in detail: Patient was brought to the operating room placed supine on the table. Bilateral lower extremity compression devices were applied. Anesthesia was induced and they intubated with an endotracheal tube. They received 3.375 g of Zosyn prior to skin incision. The left arm was tucked and appropriately padded. They were prepped and draped in sterile fashion. Time-out was performed. An infraumbilical incision was made the umbilical stalk was grasped and elevated and incision was made and the abdomen was entered atrau matically. A 12 mm balloon trocar was then placed through the incision and pneumoperitoneum of 14 mm Hg was established. The scope was then inserted and the abdomen inspected, there was no evidence of injury upon entry. Two 5 mm ports were placed under direct visualization, one in the left lower quadrant and second in the lower midline. A thorough laparoscopic evaluation was performed inspecting all four quadrants. The patient was then tilted right side up. The small bowel was then swept to the upper aspect of the abdomen. The tenie were followed to the base of the cecum where the appendix was identified. It had perforated there was purulence surrounding the tip and it was adherent to a loop of small bowel and the colon. I made a small incision directly over the appendix to acomodate my finger which I used to bluntly dissect the appendix off the surrounding structures. The mesoappendix was divided using the ligature. The appendix was then amputated flush at the cecum using the endo-stapler blue load. The specimen was retrieved using a endoscopic retrieval bad through the 10 mm infra-umbilical port. The right paracolic gutter and the pouch of D[place]rell were irrigated with 3 L of fluid. I placed a CAS drain along side the cecum. The 5 mm ports were then removed under direct visualization. The umbilical fascial incision was closed with 0 Vicryl in a figure-eight fashion. The anterior fascia of the right lower quadrant was closed with 0 vicryl. The skin wounds were irrigated and closed with 4-0 Monocryl followed by the application of Dermabond. Sponge instrument count at the end of the operation was correct. The patient tolerated procedure well was extubated and transferred to the postoperative care unit in stable condition. Complications: none Post-operative Condition: stable Disposition: Acute Care
[2020-03-05] MEDS: LACTATED RINGERS 1,000 ML 120 ML IV (18:44)
[2020-03-05] MEDS: PIPERACILLIN-TAZO 3.375 GM/50 ML FROZ.PIGGY IV (18:54)
[2020-03-05] MEDS: OXYCODONE IR 5 MG TABLET PO (21:00)
[2020-03-06] VITALS (11 sets, daily range): BP systolic 95–128; BP diastolic 59–89; PULSE 81–98; RESP 16–18; TEMP 36.3–36.9; O2SAT 96–98
[2020-03-06] MEDS: PIPERACILLIN-TAZO 3.375 GM/50 ML FROZ.PIGGY IV ×5 (01:48→23:53)
[2020-03-06] MEDS: ACETAMINOPHEN 325 MG TABLET 650 MG PO ×2 (01:53→09:04)
[2020-03-06] MEDS: OXYCODONE IR 5 MG TABLET PO ×2 (03:14→23:52)
[2020-03-06] MEDS: LACTATED RINGERS 1,000 ML 120 ML IV (04:54)
[2020-03-06 05:37] LABS: Add Manual Diff / Slide Review NO; Basophils Absolute Auto 0 /uL (0-100); Eosinophils Absolute Auto 0 /uL (0-450); Hematocrit 35.8 % (36-46); Hemoglobin 12.1 g/dL (12.0-16.0); Lymphocytes Absolute Auto 500 /uL (1100-4500); Lymphocytes Percent Auto 3.5 % (25-40); Mean Corpuscular HGB Conc 33.9 % (30-36); Mean Corpuscular Hemoglobin 31.9 PG (26-34); Mean Corpuscular Volume 94.1 fL (80-100); Monocytes Absolute Auto 600 /uL (0-900); Monocytes Percent Auto 4.7 % (3-14); Neutrophils Absolute Auto 12200 /uL (1500-7000); Neutrophils Percent Auto 91.8 % (50-75); Platelet Count 256 X10^3/uL (150-400); Red Cell Distribution Width 13.2 % (11.6-14.8); White Blood Cell Count 13.3 X10^3/uL (4.5-11.0)
[2020-03-06 05:45] LABS: BUN Creatinine Ratio 26.9 (6-22); Blood Urea Nitrogen 14 mg/dL (7-17); Calcium 8.7 mg/dL (8.4-10.2); Carbon Dioxide 28 mmol/L (22-32); Chloride 105 mmol/L (98-107); Estimated Glomerular Filt Rate > 60.0 mL/min (>60); Glucose 161 mg/dL (70-100); HEMOLYSIS < 15 (0-50); Potassium 4.3 mmol/L (3.4-5.1); Sodium 136 mmol/L (137-145)
[2020-03-06] MEDS: IBUPROFEN 200 MG TABLET PO ×2 (09:03→15:49)
[2020-03-06] MEDS: CHOLECALCIFEROL (VITAMIN D3) 1,000 UNIT TABLET 8000 UNIT PO (09:04)
[2020-03-06] MEDS: MULTIVITAMIN 1 TABLET 1 TAB PO (09:06)
[2020-03-06] MEDS: VITAMIN B COMPLEX 1 CAPSULE 2 CAP PO (09:06)
[2020-03-06 12:21] LABS: Add Manual Diff / Slide Review NO; Basophils Absolute Auto 0 /uL (0-100); Basophils Percent Auto 0.1 % (0-2); Eosinophils Absolute Auto 0 /uL (0-450); Hematocrit 35.9 % (36-46); Hemoglobin 12.1 g/dL (12.0-16.0); Lymphocytes Absolute Auto 600 /uL (1100-4500); Lymphocytes Percent Auto 3.5 % (25-40); Mean Corpuscular HGB Conc 33.7 % (30-36); Mean Corpuscular Hemoglobin 31.6 PG (26-34); Monocytes Absolute Auto 1000 /uL (0-900); Monocytes Percent Auto 6.3 % (3-14); Neutrophils Absolute Auto 14100 /uL (1500-7000); Neutrophils Percent Auto 90.1 % (50-75); Platelet Count 271 X10^3/uL (150-400); Red Blood Cell Count 3.82 X10^6/uL (4.0-5.2); Red Cell Distribution Width 13.5 % (11.6-14.8); White Blood Cell Count 15.7 X10^3/uL (4.5-11.0)
--- NOTE | 2020-03-06 14:45 | CM.DANOTE ---
DCP Assessment: EMR reviewed: Patient is a 59 yr old female who was admitted after having appendectomy that was perforated preformed by Dr. Patel. Patients PCP is Dr Martin. CM/RN met with patient at the bedside and explained role patient was alert and orineted at time of visit. Patient currently lives in [place] in a two story home with her and teen kids. Patient Is independent at baseline and drives. If patient needs IV medications, she is open to home infusions. Dont know at this time if that will be necessary. I: JONI perez and self pay Plan: D/C home with when medically stable. patient is open to home infusions if it is needed at D/C. Poornima Ugarte RN
[2020-03-07] VITALS: BP 124/76; PULSE 79; RESP 16; TEMP 36.3; O2SAT 92
[2020-03-07 01:00] VITALS: O2SAT 94
[2020-03-07 04:56] LABS: Add Manual Diff / Slide Review NO; Basophils Absolute Auto 0 /uL (0-100); Basophils Percent Auto 0.2 % (0-2); Eosinophils Absolute Auto 200 /uL (0-450); Eosinophils Percent Auto 1.4 % (2-4); Hematocrit 33.4 % (36-46); Hemoglobin 11.3 g/dL (12.0-16.0); Lymphocytes Absolute Auto 1200 /uL (1100-4500); Lymphocytes Percent Auto 8.3 % (25-40); Mean Corpuscular HGB Conc 33.8 % (30-36); Mean Corpuscular Hemoglobin 31.6 PG (26-34); Mean Corpuscular Volume 93.6 fL (80-100); Monocytes Absolute Auto 1300 /uL (0-900); Monocytes Percent Auto 8.9 % (3-14); Neutrophils Absolute Auto 11700 /uL (1500-7000); Neutrophils Percent Auto 81.2 % (50-75); Platelet Count 279 X10^3/uL (150-400); Red Blood Cell Count 3.57 X10^6/uL (4.0-5.2); Red Cell Distribution Width 13.4 % (11.6-14.8); White Blood Cell Count 14.4 X10^3/uL (4.5-11.0)
[2020-03-07 05:00] VITALS: O2SAT 94
[2020-03-07 05:19] LABS: BUN Creatinine Ratio 24.2 (6-22); Blood Urea Nitrogen 15 mg/dL (7-17); Calcium 8.6 mg/dL (8.4-10.2); Carbon Dioxide 31 mmol/L (22-32); Chloride 107 mmol/L (98-107); Estimated Glomerular Filt Rate > 60.0 mL/min (>60); Glucose 111 mg/dL (70-100); HEMOLYSIS < 15 (0-50); Potassium 4.1 mmol/L (3.4-5.1); Sodium 139 mmol/L (137-145)
[2020-03-07] MEDS: PIPERACILLIN-TAZO 3.375 GM/50 ML FROZ.PIGGY IV (05:38)
[2020-03-07] MEDS: LACTATED RINGERS 1,000 ML 120 ML IV (05:38)
[2020-03-07 05:54] VITALS: BP 107/69; PULSE 80; RESP 16; TEMP 36.3; O2SAT 93
[2020-03-07] MEDS: ACETAMINOPHEN 325 MG TABLET 650 MG PO (05:56)
--- NOTE | 2020-03-07 07:56 | PC.NURSE ---
Addendum entered by Ana Bland R.N. 03/07/20 10:24: Went over dc meds and instructions with patient, questions answered. RX sent to [facility]. Patient taken via pharmacy. Patient had all belongings. Original Note: Patient alert, oriented denies nausea and need for pain medication, ambulating independently. No needs at this time.
[2020-03-07 08:05] VITALS: BP 144/81; PULSE 86; RESP 15; TEMP 36.6; O2SAT 96
[2020-03-07] MEDS: MULTIVITAMIN 1 TABLET 1 TAB PO (08:55)
[2020-03-07] MEDS: SODIUM CHLORIDE 0.9% FLUSH 10 ML IV (08:55)
[2020-03-07] MEDS: VITAMIN B COMPLEX 1 CAPSULE 2 CAP PO (08:55)
[2020-03-07] MEDS: lisinopriL 10 MG TABLET 20 MG PO (08:55)
[2020-03-07] MEDS: CHOLECALCIFEROL (VITAMIN D3) 1,000 UNIT TABLET 8000 UNIT PO (08:56)
[2020-03-07] MEDS: IBUPROFEN 200 MG TABLET PO (08:57)
[2020-03-07 09:11] VITALS: O2SAT 96
--- NOTE | 2020-03-07 12:34 | P.DS_ITS ---
History of Present Illness History of Present Illness Chief complaint: EXTREME ABDOMINAL PAIN Narrative: 59-year-old female seen in consultation for acute appendicitis. She developed victorino epigastric pain 2 days ago which has become focal in the right lower quadrant. CT abdomen pelvis demonstrates a dilated 1.4 cm pending with some slow colitis stranding no abscess or fluid collection. Admission white blood cell count 12 urinalysis negative COVID negative remainder of laboratory studies unremarkable. She received Zosyn in the emergency room. Medical history is significant for hypertension and tubal ligation. Discharge Providers Provider Date of admission: 03/05/20 11:56 Discharge Date: 03/07/20 Primary care physician: Roma Martin MD Discharge provider: Skyler Patel MD Summary Hospital Course Discharge Diagnosis: acute perforated appendicitis Hospital Course: Underwent laparoscopic appendectomy 03/05 demonstrated perforat ed appendicitis. She remained hospitalized until 03/07 for IV antibiotic therapy. At discharge her pain is well controlled tolerating a diet ambulatory and leukocytosis is downtrending afebrile. The abdominal drain was removed. She will be on a 1 week course of augmentin following discharge. Exam Vital Signs (past 8 hours): - 03/07/20 05:00 03/07/20 05:54 03/07/20 08:05 Temperature 97.4 F L 97.8 F Pulse Rate 80 86 Respiratory Rate 16 15 Blood Pressure 107/69 144/81 H Pulse Oximetry 94 93 96 03/07/20 09:11 Temperature Pulse Rate Respiratory Rate Blood Pressure Pulse Oximetry 96 Oxygen Delivery Method Room Air Oxygen Flow Rate 0 Narrative Exam Narrative: Gen-Adult woman alert and oriented no distress Abdomen-Drain SS incisions CDI, appropriately tender to palpation Objective Labs Result Diagrams: 03/07/20 04:35 03/07/20 04:35 Labs: Laboratory Results - last 24 hr 03/07/20 03/07/20 04:35 04:35 WBC 14.4 H RBC 3.57 L Hgb 11.3 L Hct 33.4 L MCV 93.6 MCH 31.6 MCHC 33.8 RDW 13.4 Plt Count 279 Neut % (Auto) 81.2 H Lymph % (Auto) 8.3 L [place] % (Auto) 8.9 Eos % (Auto) 1.4 L Baso % (Auto) 0.2 Neut # (Auto) 20030 H Lymph # (Auto) 1200 [place] # (Auto) 1300 H Eos # (Auto) 200 Baso # (Auto) 0 Sodium 139 Potassium 4.1 Chloride 107 Carbon Dioxide 31 BUN 15 Creatinine 0.62 Estimated GFR > 60.0 BUN/Creatinine Ratio 24.2 H Glucose 111 H Calcium 8.6 PFSH Medical History Chicken pox Diverticulosis Former smoker Fractures (~2014) HTN (hypertension) Kidney stones Measles Migraines Mumps Osteoarthritis (~2014) Surgical History History of total left hip arthroplasty (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) History of total right hip replacement (~2018) History of total right knee replacement (~2018) Hx of tubal ligation Family History Grandfather Dementia Social History household members: spouse and children Smoking Status: Current some day smoker alcohol intake: current Discharge Plan Discharge Plan Patient Disposition: Home Discharge orders & Medications Prescriptions: New amoxicillin-pot clavulanate [Augmentin] 875-125 mg tablet 1 tab PO BID Qty: 14 RF: 0 oxycodone 5 mg tablet 5 mg PO Q6H PRN (Reason: pain) Qty: 30 RF: 0 Continued lisinopril 10 MG tablet 20 mg PO QDAY Qty: 0 RF: 0 vitamin B complex [B Complex-Vitamin B12] 1 EACH tablet 2 tab PO QDAY Qty: 0 RF: 0 cholecalciferol (vitamin D3) [Vitamin D3] 400 UNIT capsule 8,000 unit PO DAILY Qty: 0 RF: 0 ibuprofen [Advil] 100 mg tablet 200 mg PO QID PRN (Reason: Pain (Scale Score 1-3)) RF: 0 multivitamin Capsule 1 cap PO DAILY RF: 0 Follow up/Referrals: Roma Martin MD [Primary Care Provider] - Skyler Patel MD [Physician] - Diet/Activity/Treatments Diet: Regular Skin/Wound/Dressing Care Report to your healthcare provider any signs of infection, such as:: chills, fever, increased pain, unusual drainage and unusual redness Visit Report/Discharge Packet Instructions: DI for an Appendectomy, DI for Laparoscopy, DI for Prescription Opioid Use, Amoxicillin and Clavulanic Acid, [facility]: Wound Care Discharge Data Primary Care Provider: Roma Martin
== END 2020-03-07 10:26 | disposition home or self-care (01) | DRG 340 ==
LOC: ED 09:40 → AC 11:58
PROVIDERS: Admitting Provider Surgery; Emergency Provider Emergency Medicine; PCP Student in an Organized Health Care Education/Training Program; Visit Provider Surgery
PROC: 0DTJ4ZZ Resection of Appendix, Percutaneous Endoscopic Approach (ICD-10-PCS; CPT 44970; principal; 2020-03-05 15:00)
DX: K35.32 Acute appendicitis with perforation, localized peritonitis, and gangrene, without abscess (principal); I10 Essential (primary) hypertension; F17.210 Nicotine dependence, cigarettes, uncomplicated; Z20.828 Contact with and (suspected) exposure to other viral communicable diseases
CPT/HCPCS: 36415; 44970; 74177; 80048; 80053; 81003; 81015; 83605; 83690; 85025; 85610; 85730; 87040; 87635; 93005; 93010; 96361; 96365; 96367; 96375; 99221; 99284; J1100; J1170; J2250; J2405; J2543; J2704; J2765; J3010; Q9967

== ENCOUNTER → 2021-03-13 14:25 | Outpatient (CLI) | payer BC, SELFPAY ==
[2020-03-05 13:21] VITALS: BMI 33.3
--- NOTE | 2021-03-13 | DI.MG.S_ITS ---
BILATERAL DIGITAL SCREENING MAMMOGRAM 3D/2D WITH CAD: 03/13/2021 CLINICAL: Routine screening. Family history of breast cancer. Comparison is made to exams dated: 02/15/2020 mammogram, 02/06/2019 mammogram, and 02/04/2018 mammogram - [facility]. The tissue of both breasts is heterogeneously dense. This may lower the sensitivity of mammography. Current study was also evaluated with a Computer Aided Detection (CAD) system. No significant masses, calcifications, or other findings are seen in either breast. There has been no significant interval change. IMPRESSION: NEGATIVE There is no mammographic evidence of malignancy. A 1 year screening mammogram is recommended. This exam was interpreted at Station ID: [id number]. NOTE: For mammograms, a report in lay terms will be sent to the patient. Approximately 15% of breast malignancies will not be visualized mammographically. In the management of a palpable breast mass, a negative mammogram must not discourage biopsy of a clinically suspicious lesion. Electronically Signed By: Sameer Howard M.D., jr/shade:03/13/2021 14:58:34 letter sent: Normal Exam ACR BI-RADS Category 1: Negative 3341F
== END ==
PROVIDERS: PCP Student in an Organized Health Care Education/Training Program; Referring Provider Student in an Organized Health Care Education/Training Program; Visit Provider Student in an Organized Health Care Education/Training Program
DX: Z12.31 Encounter for screening mammogram for malignant neoplasm of breast (principal); Z80.3 Family history of malignant neoplasm of breast
CPT/HCPCS: 77063; 77067

== ENCOUNTER → 2022-03-08 14:34 | Outpatient (CLI) | payer BC, SELFPAY ==
[2020-03-05 13:21] VITALS: BMI 33.3
[2022-03-08 16:23] LABS: Add Manual Diff / Slide Review NO; Basophils Absolute Auto 100 /uL (0-100); Basophils Percent Auto 0.7 % (0-2); Eosinophils Absolute Auto 100 /uL (0-450); Eosinophils Percent Auto 0.9 % (2-4); Hematocrit 41.6 % (36-46); Hemoglobin 14.3 g/dL (12.0-16.0); Lymphocytes Absolute Auto 2000 /uL (1100-4500); Lymphocytes Percent Auto 23.3 % (25-40); Mean Corpuscular HGB Conc 34.4 % (30-36); Mean Corpuscular Hemoglobin 31.8 PG (26-34); Mean Corpuscular Volume 92.4 fL (80-100); Monocytes Absolute Auto 1000 /uL (0-900); Monocytes Percent Auto 11.9 % (3-14); Neutrophils Absolute Auto 5400 /uL (1500-7000); Neutrophils Percent Auto 63.2 % (50-75); Platelet Count 320 X10^3/uL (150-400); Red Cell Distribution Width 13.3 % (11.6-14.8); White Blood Cell Count 8.6 X10^3/uL (4.5-11.0)
[2022-03-08 16:39] LABS: Alanine Aminotransferase 21 IU/L (<35); Albumin 4.5 g/dL (3.5-5.0); Albumin Globulin Ratio 1.4 (1.0-2.8); Alkaline Phosphatase 59 U/L (38-126); Aspartate Aminotransferase 29 IU/L (14-36); BUN Creatinine Ratio 24.2 (6-22); Bilirubin Total 0.4 mg/dL (0.2-1.3); Blood Urea Nitrogen 15 mg/dL (7-17); Calcium 9.4 mg/dL (8.4-10.2); Carbon Dioxide 26 mmol/L (22-32); Chloride 105 mmol/L (98-107); Estimated Glomerular Filt Rate > 60 mL/min (>60); Globulin 3.3 g/dL (1.7-4.1); Glucose 60 mg/dL (70-100); HEMOLYSIS < 15 (0-50); Potassium 4.1 mmol/L (3.4-5.1); Sodium 141 mmol/L (137-145); Total Protein 7.8 g/dL (6.3-8.2)
[2022-03-08 16:43] LABS: Cholesterol 218 mg/dL (140-199); HDL Cholesterol 60 mg/dL (40-60); LDL Cholesterol Calculated 131 mg/dL (<100); Triglycerides 134 mg/dL (35-150)
[2022-03-08 17:10] LABS: TSH w/ Reflex to FT4 0.89 uIU/mL (0.47-4.68)
== END ==
PROVIDERS: PCP Student in an Organized Health Care Education/Training Program; Referring Provider Registered Nurse; Visit Provider Registered Nurse
DX: I10 Essential (primary) hypertension (principal); Z13.220 Encounter for screening for lipoid disorders; Z13.29 Encounter for screening for other suspected endocrine disorder
CPT/HCPCS: 36415; 80053; 80061; 84443; 85025

== ENCOUNTER → 2022-03-14 15:07 | Outpatient (CLI) | payer BC, SELFPAY ==
[2020-03-05 13:21] VITALS: BMI 33.3
--- NOTE | 2022-03-14 | DI.MG.S_ITS ---
BILATERAL DIGITAL SCREENING MAMMOGRAM 3D/2D WITH CAD: 03/14/2022 CLINICAL: Routine screening. Family history of breast cancer. Comparison is made to exams dated: 03/13/2021 mammogram, 02/15/2020 mammogram, and 02/06/2019 mammogram - [facility]. Both breasts are heterogeneously dense, which may obscure small masses (category c / 51-75% glandular tissue). Current study was also evaluated with a Computer Aided Detection (CAD) system. No significant masses, calcifications, or other findings are seen in either breast. There has been no significant interval change. IMPRESSION: NEGATIVE There is no mammographic evidence of malignancy. A 1 year screening mammogram is recommended. This exam was interpreted at Station ID: [id number]. NOTE: For mammograms, a report in lay terms will be sent to the patient. Approximately 15% of breast malignancies will not be visualized mammographically. In the management of a palpable breast mass, a negative mammogram must not discourage biopsy of a clinically suspicious lesion. Electronically Signed By: Sameer Howard M.D., jr/shade:03/14/2022 16:01:01 letter sent: Normal Exam ACR BI-RADS Category 1: Negative 3341F
== END ==
PROVIDERS: PCP Student in an Organized Health Care Education/Training Program; Referring Provider Registered Nurse; Visit Provider Registered Nurse
DX: Z12.31 Encounter for screening mammogram for malignant neoplasm of breast (principal); Z80.3 Family history of malignant neoplasm of breast
CPT/HCPCS: 77063; 77067

== ENCOUNTER → 2023-03-11 17:29 | Outpatient (CLI) | payer BC, SELFPAY ==
[2020-03-05 13:21] VITALS: BMI 33.3
--- NOTE | 2023-03-11 | DI.MG.S_ITS ---
BILATERAL DIGITAL SCREENING MAMMOGRAM 3D/2D WITH CAD: 03/11/2023 CLINICAL: Routine screening. Family history of breast cancer. Comparison is made to exams dated: 03/14/2022 mammogram, 03/13/2021 mammogram, and 02/15/2020 mammogram - [facility]. Both breasts are heterogeneously dense, which may obscure small masses (category c / 51-75% glandular tissue). Current study was also evaluated with a Computer Aided Detection (CAD) system. No significant masses, calcifications, or other findings are seen in either breast. There has been no significant interval change. IMPRESSION: NEGATIVE There is no mammographic evidence of malignancy. A 1 year screening mammogram is recommended. Based on the Tyrer Cuzick model (a risk assessment model) the patient's lifetime risk is 16.9% and her 10 year risk is 7.0%. According to the ACR, ACS, and NCCN guidelines, an annual breast MRI exam along with mammogram is recommended if the patient's lifetime risk is 20% or greater. This exam was interpreted at Station ID: [id number]. NOTE: For mammograms, a report in lay terms will be sent to the patient. Approximately 15% of breast malignancies will not be visualized mammographically. In the management of a palpable breast mass, a negative mammogram must not discourage biopsy of a clinically suspicious lesion. Electronically Signed By: Raven foy/shade:03/12/2023 14:15:21 letter sent: Normal Exam ACR BI-RADS Category 1: Negative 3341F
== END ==
PROVIDERS: PCP Registered Nurse; Referring Provider Registered Nurse; Visit Provider Registered Nurse
DX: Z12.31 Encounter for screening mammogram for malignant neoplasm of breast (principal); Z80.3 Family history of malignant neoplasm of breast
CPT/HCPCS: 77063; 77067

== ENCOUNTER → 2024-03-12 16:00 | Outpatient (CLI) | payer BC, SELFPAY ==
[2020-03-05 13:21] VITALS: BMI 33.3
--- NOTE | 2024-03-12 16:01 | DI.MG.S_ITS ---
BILATERAL DIGITAL SCREENING MAMMOGRAM 3D/2D WITH CAD: 03/12/2024 CLINICAL: Routine screening. Family history of breast cancer. Comparison is made to exams dated: 03/11/2023 mammogram, 03/14/2022 mammogram, and 03/13/2021 mammogram - [facility]. The breasts are heterogeneously dense, which may obscure small masses (category c / 51-75% glandular tissue). Current study was also evaluated with a Computer Aided Detection (CAD) system. No significant masses, calcifications, or other findings are seen in either breast. There has been no significant interval change. IMPRESSION: NEGATIVE There is no mammographic evidence of malignancy. A 1 year screening mammogram is recommended. Based on the Tyrer Cuzick model (a risk assessment model) the patient's lifetime risk is 16.6% and her 10 year risk is 7.1%. According to the ACR, ACS, and NCCN guidelines, an annual breast MRI exam along with mammogram is recommended if the patient's lifetime risk is 20% or greater. This exam was interpreted at Station ID: [id number]. NOTE: For mammograms, a report in lay terms will be sent to the patient. Approximately 15% of breast malignancies will not be visualized mammographically. In the management of a palpable breast mass, a negative mammogram must not discourage biopsy of a clinically suspicious lesion. Electronically Signed By: Jared stevens/shade:03/14/2024 08:43:21 letter sent: Normal Exam ACR BI-RADS Category 1: Negative
== END ==
LOC: MAMMO 16:01
PROVIDERS: PCP Registered Nurse; Referring Provider Registered Nurse; Visit Provider Registered Nurse
DX: Z12.31 Encounter for screening mammogram for malignant neoplasm of breast (principal); Z80.3 Family history of malignant neoplasm of breast; R92.333 Mammographic heterogeneous density, bilateral breasts
CPT/HCPCS: 77063; 77067

== ENCOUNTER → 2025-02-25 16:20 | Outpatient (CLI) | payer BC, SELFPAY ==
[2020-03-05 13:21] VITALS: BMI 33.3
--- NOTE | 2025-02-25 16:21 | DI.MG.S_ITS ---
MM screening mammo BI: 02/25/2025. BI-RADS: 1 CLINICAL: 64-year old female for bilateral screening mammogram. Tyrer-Cuzick lifetime risk of 12.8%. No personal or first-degree family history of breast cancer. Current reported family history of breast cancer: maternal grandmother. PRIOR EXAMS 03/12/2024, 03/11/2023, 03/14/2022, 03/13/2021. MAMMOGRAPHY TECHNIQUE: 2D and 3D (tomosynthesis) digital mammographic views obtained, with additional images as needed for full coverage. Current study was also evaluated with a Computer Aided Detection (CAD) system. DENSITY C. The breasts are heterogeneously dense, which may obscure small masses. MAMMOGRAPHY FINDINGS Bilateral: No suspicious mass, asymmetry, microcalcification, or other abnormality seen. No significant change from comparison. IMPRESSION: * No evidence of malignancy. RECOMMENDATIONS Bilateral * Annual screening mammography. OVERALL ASSESSMENT CATEGORY BI-RADS-1: Negative. The [employer] recommends annual screening mammography beginning at age 40 for women with average risk of breast cancer. ELECTRONICALLY SIGNED: Amaury Lynch M.D. on 02/26/2025 at 10:22:29 AM PT Interpreting Station ID: [id number]
== END ==
LOC: MAMMO 16:21
PROVIDERS: PCP Registered Nurse; Referring Provider Registered Nurse; Visit Provider Registered Nurse
DX: Z12.31 Encounter for screening mammogram for malignant neoplasm of breast (principal); R92.333 Mammographic heterogeneous density, bilateral breasts; Z80.3 Family history of malignant neoplasm of breast
CPT/HCPCS: 77063; 77067